=== PATIENT | male | born 1995 | race Caucasian/White ===

== ENCOUNTER → 2017-10-30 | Outpatient (REF) | payer MEDICAID | LOC: M SFHCLERA 18:49 | DX: J02.9 Acute pharyngitis, unspecified (principal) ==

== ENCOUNTER 2018-04-11 22:18 | Emergency (ER) | payer MEDICAID, OTHER, SELFPAY ==
[2018-04-12] MEDS: NS 1,000 ML IV (01:45)
[2018-04-12] MEDS: KETOROLAC 30 MG/ML VIAL (J1885) IV (02:02)
[2018-04-12 02:03] LABS: BASO % 0.4 % (0.0-1.0); EOS # 0.1 10^3/uL (0.0-0.50); EOS % 1.7 % (0.0-3.0); HEMATOCRIT 45.8 % (42.0-52.0); HEMOGLOBIN 15.1 g/dl (13.5-17.5); IMMATURE GRANULOCYTE % 0.2 % (0-3.0); LYMPH # 2.4 10^3/uL (1.5-6.5); LYMPH % 28.8 % (24.0-44.0); MEAN CORPUSCULAR HEMOGLOBIN 28.7 pg (27.0-33.0); MEAN CORPUSCULAR VOLUME 87.1 fl (80.0-96.0); MONO # 0.7 10^3/uL (0.0-0.8); MONO % 8.1 % (0.0-5.0); NEUTROPHILS % 60.8 % (36.0-66.0); PLATELET COUNT, AUTOMATED 243 10^3/uL (150-450); RED BLOOD COUNT 5.26 10^6/uL (4.30-6.10); RED CELL DISTRIBUTION WIDTH 13.1 % (11.5-14.5); WHITE BLOOD COUNT 8.2 10^3/uL (4.0-10.0)
[2018-04-12] MEDS: ONDANSETRON 4MG/2ML VIAL (J2405) IV (02:03)
[2018-04-12 02:26] LABS: PROTHROMBIN TIME 13.3 SECONDS (12.1-14.4)
[2018-04-12 02:27] LABS: PARTIAL THROMBOPLASTIN TIME 30.2 SECONDS (25.4-37.6)
[2018-04-12 02:40] LABS: ALBUMIN/GLOBULIN RATIO 1.05 (1.00-1.93); ALKALINE PHOSPHATASE 58 U/L (45-117); ALT/SGPT 40 U/L (12-78); ANION GAP 7 MEQ/L (8-16); AST/SGOT 24 U/L (7-37); BILIRUBIN,DIRECT < 0.1 MG/DL (0.0-0.2); BILIRUBIN,TOTAL 0.3 MG/DL (0.2-1.0); BLOOD UREA NITROGEN 11 MG/DL (7-18); CALCIUM LEVEL 8.6 MG/DL (8.5-10.1); CARBON DIOXIDE LEVEL 28 MEQ/L (21-32); CHLORIDE LEVEL 106 MEQ/L (98-107); CREATININE FOR GFR 0.91 MG/DL (0.70-1.30); GLOMERULAR FILTRATION RATE > 60.0 (>60); GLUCOSE, FASTING 86 MG/DL (70-100); LIPASE 176 U/L (73-393); POTASSIUM SERUM 3.6 MEQ/L (3.5-5.1); SODIUM LEVEL 141 MEQ/L (136-145); TOTAL PROTEIN 7.8 GM/DL (6.4-8.2)
[2018-04-12] MEDS ORDERED: ISOVUE-370 76% 100ML VIAL (Q9967) As Ordered (03:12)
== END 2018-04-12 05:29 | disposition home or self-care (01) ==
LOC: M ED 22:18
DX: R10.9 Unspecified abdominal pain (principal); R11.0 Nausea; K58.9 Irritable bowel syndrome, unspecified; K57.30 Diverticulosis of large intestine without perforation or abscess without bleeding; Z79.899 Other long term (current) drug therapy
CPT/HCPCS: J2405

== ENCOUNTER → 2018-06-27 | Outpatient (REF) | payer OTHER | LOC: M SFHCPLAZ 14:49 | DX: R53.83 Other fatigue (principal) ==

== ENCOUNTER → 2018-07-01 | Outpatient (REF) | payer OTHER ==
[2018-07-01 19:17] LABS: BASO % 0.6 % (0.0-1.0); EOS # 0.1 10^3/uL (0.0-0.50); EOS % 1.9 % (0.0-3.0); HEMATOCRIT 46.4 % (42.0-52.0); HEMOGLOBIN 15.5 g/dl (13.5-17.5); IMMATURE GRANULOCYTE % 0.3 % (0-3.0); LYMPH # 1.7 10^3/uL (1.5-6.5); LYMPH % 26.8 % (24.0-44.0); MEAN CORPUSCULAR HEMOGLOBIN 28.9 pg (27.0-33.0); MEAN CORPUSCULAR HGB CONC 33.4 g/dl (32.0-36.5); MEAN CORPUSCULAR VOLUME 86.4 fl (80.0-96.0); MONO # 0.7 10^3/uL (0.0-0.8); MONO % 11.1 % (0.0-5.0); NEUTROPHILS # 3.8 10^3/uL (1.8-7.7); NEUTROPHILS % 59.3 % (36.0-66.0); PLATELET COUNT, AUTOMATED 257 10^3/uL (150-450); RED BLOOD COUNT 5.37 10^6/uL (4.30-6.10); RED CELL DISTRIBUTION WIDTH 13.1 % (11.5-14.5); WHITE BLOOD COUNT 6.4 10^3/uL (4.0-10.0)
[2018-07-01 19:54] LABS: ALBUMIN 4.3 GM/DL (3.2-5.2); ALBUMIN/GLOBULIN RATIO 1.16 (1.00-1.93); ALKALINE PHOSPHATASE 56 U/L (45-117); ALT/SGPT 40 U/L (12-78); ANION GAP 10 MEQ/L (8-16); AST/SGOT 20 U/L (7-37); BILIRUBIN,TOTAL 0.4 MG/DL (0.2-1.0); BLOOD UREA NITROGEN 13 MG/DL (7-18); CALCIUM LEVEL 9.2 MG/DL (8.5-10.1); CARBON DIOXIDE LEVEL 28 MEQ/L (21-32); CHLORIDE LEVEL 104 MEQ/L (98-107); CPK CREATINE PHOSPHOKINASE 98 U/L (39-308); CREATININE FOR GFR 0.88 MG/DL (0.70-1.30); FREE T4 0.77 NG/DL (0.76-1.46); GLOMERULAR FILTRATION RATE > 60.0 (>60); GLUCOSE, FASTING 77 MG/DL (70-100); POTASSIUM SERUM 4.1 MEQ/L (3.5-5.1); SODIUM LEVEL 142 MEQ/L (136-145)
[2018-07-02 08:25] LABS: CONTROL LINE MONO RF C INT CTR LINE PRESENT; MONO REFLEX EBV COMP NEGATIVE (NEGATIVE)
[2018-07-05 00:07] LABS: EBV VIRAL CAPSID AG IgM <36.0 U/mL (0.0-35.9)
== END ==
LOC: M SFHCPLAZ 15:19
DX: R53.83 Other fatigue (principal)

== ENCOUNTER 2018-07-04 10:04 | Day surgery (SDC) | payer OTHER ==
[2018-07-04] MEDS: NS 1,000 ML IV (06:00)
[~2018-07-04 10:04] MED LIST: LIDOCAINE 2% INJ 100 MG/5 ML SDV (FOR ANES.) As Ordered; PROPOFOL 200 MG/20 ML VIAL As Ordered
[2018-07-04] MEDS ORDERED: PROPOFOL 200 MG/20 ML VIAL As Ordered (11:54)
== END 2018-07-04 13:00 | disposition home or self-care (01) ==
LOC: M OPP 10:04
DX: K64.8 Other hemorrhoids (principal); K52.9 Noninfective gastroenteritis and colitis, unspecified; K92.1 Melena; K63.5 Polyp of colon; K22.8 Other specified diseases of esophagus; K21.0 Gastro-esophageal reflux disease with esophagitis; K29.70 Gastritis, unspecified, without bleeding; F32.9 Major depressive disorder, single episode, unspecified; F41.9 Anxiety disorder, unspecified; G43.909 Migraine, unspecified, not intractable, without status migrainosus; Z80.0 Family history of malignant neoplasm of digestive organs
CPT/HCPCS: 45380

== ENCOUNTER → 2018-09-20 | Outpatient (REF) | payer OTHER ==
[~2018-09-20] MED LIST changes: +BUSP5TA PO; +FLON1SPR NARES; -LIDOCAINE 2% INJ 100 MG/5 ML SDV (FOR ANES.) As Ordered; +MECL-68 PO; +MULTCAP PO; +OMEP20CA3 PO; +PANT20TA2 PO; +PEPC1TAB5 PO; -PROPOFOL 200 MG/20 ML VIAL As Ordered; +VITA200016 PO; +ZOFR4TAB14 PO; +ZYRTTAB8 PO
[2018-09-20 17:58] LABS: APPEARANCE, URINE CLEAR (CLEAR); BACTERIA, URINE AUTO NEGATIVE (NEGATIVE); BILIRUBIN, URINE AUTO NEGATIVE (NEGATIVE); BLOOD, URINE BLOOD NEGATIVE (NEGATIVE); CALCIUM OXALATE CRYSTALS SMALL; COLOR, URINE YELLOW (YELLOW); GLUCOSE, URINE (UA) AUTO NEGATIVE (NEGATIVE); KETONE, URINE AUTO NEGATIVE (NEGATIVE); LEUKOCYTE ESTERASE, URINE AUTO NEGATIVE (NEGATIVE); MUCUS, URINE MODERATE (NEGATIVE); NITRITE, URINE AUTO NEGATIVE (NEGATIVE); PROTEIN, URINE AUTO NEGATIVE (NEGATIVE); RBC, URINE AUTO 1 /HPF (0-3); SPECIFIC GRAVITY URINE AUTO 1.029 (1.002-1.035); SQUAMOUS EPITHELIAL CELL UR AU 0 /HPF (0-6); UROBILINOGEN, URINE AUTO 0.2 mg/dL (0.0-2.0); WBC, URINE AUTO 0 /HPF (0-3)
[2018-09-20 19:53] LABS: CHLAMYDIA DNA AMPLIFICATION NEGATIVE (NEGATIVE); GC DNA AMPLIFICATION NEGATIVE (NEGATIVE)
== END ==
LOC: M SFHCPLAZ 17:20
PROVIDERS: ATTEND Obstetrics & Gynecology
DX: E55.9 Vitamin D deficiency, unspecified (principal); R30.0 Dysuria

== ENCOUNTER 2018-09-26 02:52 | Emergency (ER) | payer OTHER ==
[~2018-09-26] VITALS: Ht 180.3 cm; Wt 93.2 kg
[~2018-09-26 02:52] MED LIST changes: -FLON1SPR NARES; -MECL-68 PO; -PANT20TA2 PO; -PEPC1TAB5 PO; -VITA200016 PO
[2018-09-26] MEDS ORDERED: FLON1SPR NARES (02:56)
[2018-09-26] MEDS ORDERED: PANT20TA2 PO (02:56)
[2018-09-26] MEDS ORDERED: VITA200016 PO (02:56)
[2018-09-26] MEDS ORDERED: NS 1,000 ML IV ONE (03:30)
[2018-09-26 03:47] LABS: BASO % 0.4 % (0.0-1.0); EOS # 0.1 10^3/uL (0.0-0.50); EOS % 0.9 % (0.0-3.0); HEMATOCRIT 45.3 % (42.0-52.0); HEMOGLOBIN 15.1 g/dl (13.5-17.5); LYMPH # 2.1 10^3/uL (1.5-6.5); LYMPH % 19.8 % (24.0-44.0); MEAN CORPUSCULAR HEMOGLOBIN 28.9 pg (27.0-33.0); MEAN CORPUSCULAR HGB CONC 33.3 g/dl (32.0-36.5); MEAN CORPUSCULAR VOLUME 86.8 fl (80.0-96.0); MONO # 0.9 10^3/uL (0.0-0.8); MONO % 8.3 % (0.0-5.0); NEUTROPHILS # 7.5 10^3/uL (1.8-7.7); NEUTROPHILS % 70.2 % (36.0-66.0); PLATELET COUNT, AUTOMATED 251 10^3/uL (150-450); RED BLOOD COUNT 5.22 10^6/uL (4.30-6.10); WHITE BLOOD COUNT 10.6 10^3/uL (4.0-10.0)
[2018-09-26] MEDS ORDERED: GI COCKTAIL 50ML BTL(HYOSCYAMINE/MAALOX/LIDOCAINE VISCOUS)(1:3:1) PO ONE (04:00)
[2018-09-26 04:19] LABS: ALBUMIN 4.2 GM/DL (3.2-5.2); ALT/SGPT 31 U/L (12-78); BILIRUBIN,DIRECT < 0.1 MG/DL (0.0-0.2); BILIRUBIN,TOTAL 0.3 MG/DL (0.2-1.0); BLOOD UREA NITROGEN 9 MG/DL (7-18); CALCIUM LEVEL 8.6 MG/DL (8.5-10.1); CARBON DIOXIDE LEVEL 26 MEQ/L (21-32); CHLORIDE LEVEL 105 MEQ/L (98-107); CK-MB VALUE MASS < 1.0 NG/ML (<3.6); CPK CREATINE PHOSPHOKINASE 127 U/L (39-308); CREATININE FOR GFR 0.87 MG/DL (0.70-1.30); GLOMERULAR FILTRATION RATE > 60.0 (>60); GLUCOSE, FASTING 90 MG/DL (70-100); LIPASE 149 U/L (73-393); MB/CK RELATIVE INDEX 0.79 (< OR =4); POTASSIUM SERUM 3.7 MEQ/L (3.5-5.1); SODIUM LEVEL 140 MEQ/L (136-145); TOTAL PROTEIN 7.8 GM/DL (6.4-8.2); TROPONIN I < 0.02 NG/ML (< 0.10)
[2018-09-26] MEDS ORDERED: MECLIZINE 25 MG TABLET PO ONE (05:00)
[2018-09-26] MEDS ORDERED: FAMOTIDINE 20 MG TAB PO ONE (05:00)
[2018-09-26] MEDS ORDERED: PANTOPRAZOLE 40MG INJ (PROTONIX) (C9113) IV ONE (05:00)
[2018-09-26] MEDS ORDERED: PEPC1TAB5 PO (05:02)
[2018-09-26] MEDS ORDERED: MECL-68 PO (05:02)
[2018-09-26 05:04] VITALS: BP 122/66
== END 2018-09-26 05:09 | disposition home or self-care (01) ==
LOC: M ED 02:52
DX: K21.9 Gastro-esophageal reflux disease without esophagitis (principal)
CPT/HCPCS: 80048; 80076; 82550; 82553; 83690; 85025; 93041; 96361; 96374; 99284; C9113

== ENCOUNTER → 2019-01-31 | Outpatient (CLI) | payer OTHER ==
[~2019-01-31] MED LIST changes: +FLON1SPR NARES; +MECL-68 PO; +PANT20TA2 PO; +PEPC1TAB5 PO; +VITA200016 PO
== END ==
LOC: M LAB 15:47
PROVIDERS: ATTEND Internal Medicine Gastroenterology
DX: B96.81 Helicobacter pylori [H. pylori] as the cause of diseases classified elsewhere (principal)

== ENCOUNTER → 2019-02-05 | Outpatient (REF) | payer OTHER | LOC: M LAB REF 02-04 15:59 | PROVIDERS: ATTEND Internal Medicine Gastroenterology | DX: B96.81 Helicobacter pylori [H. pylori] as the cause of diseases classified elsewhere (principal) ==

== ENCOUNTER 2019-05-05 12:03 | Day surgery (SDC) | payer OTHER ==
[~2019-05-05] VITALS: Ht 175.3 cm; Wt 129.7 kg
[~2019-05-05 12:03] MED LIST changes: -OMEP20CA3 PO; +OMEP20CA4 PO; +OMEP40CA2 PO; +RANI15TA PO
[2019-05-05] MEDS ORDERED: NS 1,000 ML IV ONE (13:15)
[2019-05-05] MEDS ORDERED: LIDOCAINE 2% INJ 100 MG/5 ML SDV (FOR ANES.) As Ordered ONE (13:30)
[2019-05-05] MEDS ORDERED: PROPOFOL 200 MG/20 ML VIAL As Ordered ONE ×2 (13:30→13:57)
--- NOTE | 2019-05-05 14:13 | ROOR ---
Patient Name: Brayan Arguello Procedure Date: 05/05/2019 1:45 PM Date of : 1995 Age: 23 Room: [facility] Gender: Male Note Status: Finalized Procedure: Upper GI endoscopy Indications: Heartburn, Suspected gastro-esophageal reflux disease Providers: Bharath Galvan MD Referring MD: THIERRY MATA [facility] THIERRY Denise Requesting Provider: Medicines: Monitored Anesthesia Care Complications: No immediate complications. Procedure: Pre-Anesthesia Assessment: - Prior to the procedure, a History and Physical was performed, and patient medications and allergies were reviewed. The patient is competent. The risks and benefits of the procedure and the sedation options and risks were discussed with the patient. All questions were answered and informed consent was obtained. Patient identification and proposed procedure were verified by the physician, the nurse and the anesthesiologist in the procedure room. Mental Status Examination: alert and oriented. Airway Examination: normal oropharyngeal airway and neck mobility. Respiratory Examination: clear to auscultation. CV Examination: normal. Prophylactic Antibiotics: The patient does not require prophylactic antibiotics. Prior Anticoagulants: The patient has taken no previous anticoagulant or antiplatelet agents. ASA Grade Assessment: II - A patient with mild systemic disease. After reviewing the risks and benefits, the patient was deemed in satisfactory condition to undergo the procedure. The anesthesia plan was to use monitored anesthesia care (MAC). Immediately prior to administration of medications, the patient was re-assessed for adequacy to receive sedatives. The heart rate, respiratory rate, oxygen saturations, blood pressure, adequacy of pulmonary ventilation, and response to care were monitored throughout the procedure. The physical status of the patient was re-assessed after the procedure. The Endoscope was introduced through the mouth, and advanced to the second part of duodenum. The upper GI endoscopy was accomplished without difficulty. The patient tolerated the procedure well. Findings: The Z-line was regular and was found 40 cm from the incisors. The GOFF capsule with delivery system was introduced through the mouth and advanced into the esophagus, such that the GOFF pH capsule was positioned 34 cm from the incisors, which was 6 cm proximal to the GE junction. Suction was applied to the well of the GOFF pH capsule to suck in the adjacent mucosa of the esophagus using the external vacuum pump set at a minimum vacuum pressure of 550 mmHg for 30 seconds. The GOFF pH capsule was then deployed by depressing the plunger on top of the handle to advance the locking pin into the mucosa, thereby attaching the capsule to the esophagus. The plunger was then rotated a quarter turn clockwise to release the capsule from the delivery system. The delivery system was then withdrawn. Endoscopy was utilized for probe placement and diagnostic evaluation. The scope was reinserted to evaluate placement of the GOFF capsule. Visualization showed the GOFF capsule to be in an appropriate position. Scattered minimal inflammation characterized by erythema and granularity was found in the gastric antrum. Biopsies were taken with a cold forceps for Helicobacter pylori testing. Verification of patient identification for the specimen was done by the physician and nurse using the patient's name, date and medical record number. Estimated blood loss was minimal. The duodenal bulb and second portion of the duodenum were normal. Impression: - Z-line regular, 40 cm from the incisors. - Gastritis. Biopsied. - Normal duodenal bulb and second portion of the duodenum. - The GOFF pH capsule was positioned 34 cm from the incisors, which was 6 cm proximal to the GE junction. Recommendation: - Patient has a contact number available for emergencies. The signs and symptoms of potential delayed complications were discussed with the patient. Return to normal activities tomorrow. Written discharge instructions were provided to the patient. - Resume previous diet. - Continue present medications. - Await pathology results. - Follow an antireflux regimen. - Telephone GI clinic for study results in 3 weeks. - Return to primary care physician. Bharath Galvan MD Bharath Galvan MD 05/05/2019 2:13:18 PM Electronically signed by Bharath Galvan MD Number of Addenda: 0 Note Initiated On: 05/05/2019 1:45 PM Estimated Blood Loss: Estimated blood loss was minimal.
[2019-05-05 14:30] VITALS: BP 115/69
== END 2019-05-05 14:44 | disposition home or self-care (01) ==
LOC: M OPP 12:03
PROVIDERS: ATTEND Internal Medicine Gastroenterology
DX: K29.50 Unspecified chronic gastritis without bleeding (principal)

== ENCOUNTER → 2019-05-08 | Outpatient (REF) | payer OTHER ==
[2019-05-09 10:45] LABS: HIV 1&2 SCREEN CENTAUR NEGATIVE (NEGATIVE)
== END ==
LOC: M SFHCPLAZ 15:17
PROVIDERS: ATTEND Family Medicine
DX: E55.9 Vitamin D deficiency, unspecified (principal); Z11.9 Encounter for screening for infectious and parasitic diseases, unspecified

== ENCOUNTER → 2019-06-27 | Outpatient (REF) | payer OTHER ==
[2019-06-27 14:49] LABS: BASO % 0.7 % (0.0-1.0); EOS # 0.1 10^3/uL (0.0-0.5); EOS % 2.2 % (0.0-3.0); HEMATOCRIT 42.5 % (42.0-52.0); LYMPH # 1.9 10^3/uL (1.5-5.0); LYMPH % 30.7 % (24.0-44.0); MEAN CORPUSCULAR HEMOGLOBIN 28.4 pg (27.0-33.0); MEAN CORPUSCULAR HGB CONC 32.9 g/dl (32.0-36.5); MEAN CORPUSCULAR VOLUME 86.2 fl (80.0-96.0); MONO # 0.6 10^3/uL (0.0-0.8); MONO % 10.4 % (0.0-5.0); NEUTROPHILS # 3.3 10^3/uL (1.5-8.5); PLATELET COUNT, AUTOMATED 239 10^3/uL (150-450); RED BLOOD COUNT 4.93 10^6/uL (4.30-6.10)
[2019-06-27 15:02] LABS: ALBUMIN 3.9 GM/DL (3.2-5.2); ALT/SGPT 33 U/L (12-78); BILIRUBIN,TOTAL 0.5 MG/DL (0.2-1.0); BLOOD UREA NITROGEN 12 MG/DL (7-18); CALCIUM LEVEL 8.6 MG/DL (8.5-10.1); CARBON DIOXIDE LEVEL 27 MEQ/L (21-32); CHLORIDE LEVEL 104 MEQ/L (98-107); CREATININE FOR GFR 0.78 MG/DL (0.70-1.30); FERRITIN 107 NG/ML (26-388); GLOMERULAR FILTRATION RATE > 60.0 (>60); GLUCOSE, FASTING 86 MG/DL (70-100); POTASSIUM SERUM 3.9 MEQ/L (3.5-5.1); SODIUM LEVEL 140 MEQ/L (136-145); TOTAL PROTEIN 7.6 GM/DL (6.4-8.2)
== END ==
LOC: M LABNEURO 10:07
PROVIDERS: ATTEND Psychiatry & Neurology Neurology
DX: G47.00 Insomnia, unspecified (principal); G25.81 Restless legs syndrome

== ENCOUNTER 2019-08-01 14:30 | Outpatient (RCR) | payer OTHER ==
[~2019-08-01 14:30] MED LIST changes: -OMEP40CA2 PO; +OMEP40CA97 PO
== END 2019-08-03 ==
LOC: M PT 14:30
PROVIDERS: ATTEND Obstetrics & Gynecology
DX: H81.11 Benign paroxysmal vertigo, right ear (principal)

== ENCOUNTER → 2019-10-23 | Outpatient (CLI) | payer OTHER ==
[~2019-10-23] MED LIST changes: -MECL-68 PO; +MECL1TAB31 PO; +OMEP1CAP73 PO; -OMEP20CA4 PO
== END ==
LOC: M PLALAB 15:33
PROVIDERS: ATTEND Obstetrics & Gynecology
DX: E55.9 Vitamin D deficiency, unspecified (principal)

== ENCOUNTER → 2021-01-08 | Outpatient (CLI) | payer OTHER ==
[~2021-01-08] MED LIST changes: -PANT20TA2 PO; +PANT20TA6 PO
== END ==
LOC: M LABSMTC 12:38
PROVIDERS: ATTEND Anesthesiology
DX: Z01.812 Encounter for preprocedural laboratory examination (principal)

== ENCOUNTER 2021-01-13 09:46 | Day surgery (SDC) | payer OTHER ==
[~2021-01-13] VITALS: Ht 180.3 cm; Wt 90.3 kg
[~2021-01-13 09:46] MED LIST changes: +NS 1,000 ML IV ONE
[2021-01-13] MEDS ORDERED: LIDOCAINE 2% 100MG/5ML SDV (FOR ANES.) As Ordered ONE (09:51)
[2021-01-13] MEDS ORDERED: propofoL 200 MG/20 ML VIAL As Ordered ONE (09:51)
[2021-01-13] MEDS ORDERED: fentaNYL 100 MCG/2 ML INJECTION (J3010) As Ordered ONE (09:52)
--- NOTE | 2021-01-13 11:24 | ROOR ---
Patient Name: Brayan Arguello Procedure Date: 01/13/2021 11:07 AM Date of : 1995 Age: 25 Room: [facility] Gender: Male Note Status: Finalized Procedure: Upper Endoscopy + Biopsies Indications: Heartburn, Exclusion of Hernandez's esophagus Providers: Yoseph Gaviria MD Referring MD: Gladys Zaidi Do Requesting Provider: Medicines: Monitored Anesthesia Care Complications: No immediate complications. Procedure: Pre-Anesthesia Assessment: - The heart rate, respiratory rate, oxygen saturations, blood pressure, adequacy of pulmonary ventilation, and response to care were monitored throughout the procedure. The Endoscope was introduced through the mouth, and advanced to the second part of duodenum. The upper GI endoscopy was accomplished without difficulty. The patient tolerated the procedure well. Findings: The Z-line was regular and was found 40 cm from the incisors. Multiple biopsies were obtained with cold forceps for evaluation to rule out Hernandez's Esophagus randomly at the gastroesophageal junction. Mucosal changes were found in the mid esophagus. Biopsies were taken with a cold forceps for histology. No other significant abnormalities were identified in a careful examination of the stomach. Biopsies were taken with a cold forceps in the gastric antrum for Helicobacter pylori testing. The exam of the duodenum was otherwise normal. Impression: - Z-line regular, 40 cm from the incisors. - Esophageal mucosal changes suggestive of eosinophilic esophagitis. Biopsied. - Multiple biopsies were obtained at the gastroesophageal junction. - Biopsies were taken with a cold forceps for Helicobacter pylori testing. - The examination was otherwise normal. Recommendation: - Patient has a contact number available for emergencies. The signs and symptoms of potential delayed complications were discussed with the patient. Return to normal activities tomorrow. Written discharge instructions were provided to the patient. - High fiber diet. - Discharge patient to home. - Follow an antireflux regimen. - Continue present medications. - Await pathology results. - Telephone GI clinic for pathology results in 1 week. - Return to referring physician. - The findings and recommendations were discussed with the patient. Procedure Code(s): --- Professional --- 33052, Esophagogastroduodenoscopy, flexible, transoral; with biopsy, single or multiple Diagnosis Code(s): --- Professional --- K22.8, Other specified diseases of esophagus R12, Heartburn CPT copyright 2019 [employer] [place] [employer]. All rights reserved. The codes documented in this report are preliminary and upon computer language coder review may be revised to meet current compliance requirements. Yoseph Gaviria MD Yoseph Gaviria MD 01/13/2021 11:23:36 AM Electronically signed by Yoseph Gaviria MD Number of Addenda: 0 Note Initiated On: 01/13/2021 11:07 AM Estimated Blood Loss: Estimated blood loss: none.
[2021-01-13 11:54] VITALS: BP 118/77
== END 2021-01-13 11:57 | disposition home or self-care (01) ==
LOC: M OPP 09:46
PROVIDERS: ATTEND Internal Medicine Gastroenterology
DX: R12 Heartburn (principal); D13.0 Benign neoplasm of esophagus; D13.1 Benign neoplasm of stomach; K22.8 Other specified diseases of esophagus; K58.9 Irritable bowel syndrome, unspecified; L30.9 Dermatitis, unspecified; F41.9 Anxiety disorder, unspecified; F32.9 Major depressive disorder, single episode, unspecified; G43.909 Migraine, unspecified, not intractable, without status migrainosus; Z79.899 Other long term (current) drug therapy
CPT/HCPCS: 43239; 88305; J3010

== ENCOUNTER 2021-05-30 16:43 | Emergency (ER) | payer OTHER ==
[~2021-05-30] VITALS: Ht 175.3 cm; Wt 85.1 kg
[2021-05-30 22:25] LABS: BASO % 0.3 % (0.0-1.0); EOS # 0.1 10^3/uL (0.0-0.5); EOS % 1.2 % (0.0-3.0); HEMATOCRIT 44.3 % (42.0-52.0); HEMOGLOBIN 14.6 g/dl (13.5-17.5); LYMPH # 1.7 10^3/uL (1.5-5.0); LYMPH % 25.8 % (24.0-44.0); MEAN CORPUSCULAR HEMOGLOBIN 28.4 pg (27.0-33.0); MEAN CORPUSCULAR VOLUME 86.2 fl (80.0-96.0); MONO # 0.8 10^3/uL (0.0-0.8); MONO % 11.8 % (2.0-8.0); NEUTROPHILS # 3.9 10^3/uL (1.5-8.5); NEUTROPHILS % 60.7 % (36.0-66.0); PLATELET COUNT, AUTOMATED 239 10^3/uL (150-450); RED BLOOD COUNT 5.14 10^6/uL (4.30-6.10); WHITE BLOOD COUNT 6.4 10^3/uL (4.0-10.0)
[2021-05-30 22:59] LABS: ALT/SGPT 22 U/L (12-78); BILIRUBIN,DIRECT 0.1 MG/DL (0.0-0.2); BILIRUBIN,TOTAL 0.3 MG/DL (0.2-1.0); BLOOD UREA NITROGEN 9 MG/DL (7-18); CALCIUM LEVEL 9.1 MG/DL (8.5-10.1); CARBON DIOXIDE LEVEL 29 MEQ/L (21-32); CHLORIDE LEVEL 105 MEQ/L (98-107); CK-MB VALUE MASS < 1.0 NG/ML (<3.6); CPK CREATINE PHOSPHOKINASE 75 U/L (39-308); CREATININE FOR GFR 0.86 MG/DL (0.70-1.30); GLOMERULAR FILTRATION RATE > 60.0 (>60); GLUCOSE, FASTING 104 MG/DL (70-100); LIPASE 223 U/L (73-393); MB/CK RELATIVE INDEX 1.33 (< OR =4); SODIUM LEVEL 140 MEQ/L (136-145); TOTAL PROTEIN 7.9 GM/DL (6.4-8.2); TROPONIN I < 0.02 NG/ML (< 0.10)
[2021-05-30] MEDS ORDERED: GI COCKTAIL 50ML BTL(HYOSCYAMINE/MAALOX/LIDOCAINE VISCOUS)(1:3:1) PO ONE (23:05)
[2021-05-31 01:19] VITALS: BP 116/73
== END 2021-05-31 01:20 | disposition home or self-care (01) ==
LOC: M ED 16:43
DX: K21.9 Gastro-esophageal reflux disease without esophagitis (principal); F41.9 Anxiety disorder, unspecified; F33.9 Major depressive disorder, recurrent, unspecified; K58.9 Irritable bowel syndrome, unspecified; Z79.899 Other long term (current) drug therapy

== ENCOUNTER → 2021-05-30 | Outpatient (CLI) | payer OTHER ==
[~2021-05-30] MED LIST changes: -NS 1,000 ML IV ONE; +OMEP40CA4 PO; -OMEP40CA97 PO
== END ==
LOC: M LABSMTC 11:31
PROVIDERS: ATTEND Pediatrics
DX: Z20.822 Contact with and (suspected) exposure to COVID-19 (principal)
CPT/HCPCS: C9803; U0003

== ENCOUNTER 2021-07-16 13:04 | Emergency (ER) | payer OTHER ==
[~2021-07-16] VITALS: Ht 177.8 cm; Wt 85.6 kg
--- OUTSIDE RECORDS SUMMARY | 2021-07-16 13:11 | CCD | Continuity of Care Document ---
Author Author Brayan CEE [place] Organization Unknown Address [address] [place] [address] [place] [address] Phone [phone] Care Team Providers Care Senior Professional Services Consultant Name Role Phone [facility] AUTM [phone] Problems Description No Information Available Social History Type Date Description Comments Sex Unknown Tobacco Use Start: Unknown Never Smoked Cigarettes Vapes ETOH Use Denies alcohol use Tobacco Use Start: Unknown Patient has never smoked Allergies, Adverse Reactions, Alerts Description No Known Drug Allergies Medications Active Medications SIG Qnty Indications Ordering Provide r Date Proair HFA 108(90Base) mcg/Act Aer osol inhale 2 puffs every 4-6 hours as needed for cough or wheeze 8.500gm R05 Joseph Abraham JR., M.D. 01/11/[address] 1 by mouth every day Unknown Immunizations Description No Information Available Vital Signs Date Vital Result Comment 01/11/2019 5:08pm BP Systolic 114 mmHg BP Diastolic 78 mmHg Heart Rate 82 /min Respiratory Rate 18 /min O2 % BldC Oximetry 97 % Body Temperature 97.8 F Weight 205.00 lb Height 71 inches 5'11" BMI (Body Mass Index) 28.6 kg/m2 Pain Level 5 11/05/2016 1:30pm BP Systolic 137 mmHg BP Diastolic 83 mmHg Heart Rate 88 /min O2 % BldC Oximetry 96 % Body Temperature 99.3 F Weight 200.00 lb Height 70 inches 5'10" BMI (Body Mass Index) 28.7 kg/m2 Pain Level 3 Results Description No Information Available Procedures Description No Information Available Medical Devices Description No Information Available Encounters Description No Information Available Assessments Description No Information Available Plan of Treatment No Information Available Functional Status Description No Information Available Mental Status Description No Information Available Referrals Description No Information Available
--- OUTSIDE RECORDS SUMMARY | 2021-07-16 13:11 | CCD ---
Author Author [facility] Organization [facility] Address Unknown Phone Unavailable Care Team Providers Care Cloth Classer Name Role Phone Yaneth Nielsen Unavailable PROBLEMS Type Condition ICD9-CM Code LSU00-LZ Code Onset Dates Condition S tatus W/U Status Risk SNOMED Code Notes Problem Anxiety F41.9 Active confirmed 38782810 Problem Other tobacco product nicotine dependence, uncomplicated F17.290 Active confirmed 42164867 Problem Obstructive sleep apnea G47.33 Active confirmed 34220669 Problem Irritable bowel syndrome with both constipation and diarrh ea K58.2 Active confirmed 43466703 Problem Diverticulosis large intestine w/o perforation o r abscess w/bleeding K57.31 Active confirmed 4186361 Problem Gastroesophageal reflux disease without esophagitis K21.9 Active confirmed 515089584 Problem Vitamin D deficiency E55.9 Active confirmed 96257999 ALLERGIES Allergen (clinical drug ingredient) Drug/Non Drug Allergy do cumented on EMR Reaction Allergy Type Onset Date Status sertraline Sertraline HCl([facility] Code:[address]-73) Panic Attack Drug A llergy Active venlafaxine Venlafaxine HCl([place] Code:[address]-28) Panic Attack Drug Allergy Active ENCOUNTERS from 1995 to 2021-06-03 Encounter Location Date Provider Diagnosis [address] [phone] [place] [address] May, Yaneth Rayi IMMUNIZATIONS Vaccine Route Administration Date Status Rocephin 250mg Ceftriaxone IM Intramuscular January 25, 2018 Admi nistered Gardasil IM Intramuscular Jun 21, 2015 Administered SOCIAL HISTORY Tobacco Use: Social History Observation Description Date Details (start date - stop date) Never Smoker Sex Assigned At : Social History Observation Description Sex Assigned At Unknown Education: Question Answer Notes Level of Education: High School Audit Question Answer Notes Total Score: 0 Interpretation: Alcohol Education Language: Question Answer Notes Languages spoken: Albanian Quaker: Question Answer Notes Quaker 08 [employer] No mormonism beliefs that would impact health care. Drug and Alcohol Question Answer Notes Total Score: 0 Interpretation: No problems reported Tobacco Use: Question Answer Notes Are you a: never smoker never smoker REASON FOR REFERRAL No Information VITAL SIGNS No information MEDICATIONS Medication SIG (Take, Route, Frequency, Duration) Notes Start Da te End Date Status Ranitidine HCl 300 MG 1 tablet Orally Once a day for 30 day(s) Oct, Active hydrOXYzine HCl 25 MG 1 tablet as needed Orally every 8 hrs for 30 da y(s) Not-Taking Carafate 1 GM/10ML 10 ml on an empty stomach Orally Twice a day for 30 day(s) May, Active Vitamin D 50 MCG (1999 [place]) 1 tablet Orally Once a day for 30 day(s) Active Omeprazole 40 MG 1 capsule Orally Once a day for 30 day(s) Mar, Active PROCEDURES No Information RESULTS No Results REASON FOR VISIT SOB MEDICAL (GENERAL) HISTORY Type Description Date Medical History Eczema Medical History History of chronic headaches (have gone away) Medical History Insomnia Medical History Anxiety Medical History H. pylori w/ reflux Surgical History Rt Eye surgery, 1999 Goals Section No Information Health Concerns No Information MEDICAL EQUIPMENT No Information MENTAL STATUS No Information FUNCTIONAL STATUS No Information ASSESSMENTS No Information PLAN OF TREATMENT Medication Medication Name Sig Start Date Stop Date Carafate 1 GM/10ML 10 ml on an empty stomach Orally Twice a day for 30 day(s) May, Ranitidine HCl 300 MG 1 tablet Orally Once a day for 30 day(s) 2 0 Oct, 2019 Omeprazole 40 MG 1 capsule Orally Once a day for 30 day(s) 2018 Insurance Providers Payer Name Payer Address Payer Phone Insured Name Patient Relati onship to Insured Coverage Start Date Coverage End Date [facility] [address] [facility] [id number] SKIP MICHAELS self
--- OUTSIDE RECORDS SUMMARY | 2021-07-16 13:11 | CCD | Continuity of Care Document ---
Author Author Brayan GAVIRIA M.D. Organization Unknown Address [address] [place] [address] Phone [phone] Care Team Providers Care Sales Promoter Name Role Phone Gladys Zaidi DO AUTM [phone] Problems Active Problems Provider Date Gastroesophageal reflux disease Yoseph Gaviria M.D. Ons et: 05/21/2020 Social History Type Date Description Comments Sex Unknown ETOH Use Occasionally Tobacco Use Start: Unknown Patient has never smoked Allergies, Adverse Reactions, Alerts Description No Known Drug Allergies Medications Active Medications SIG Qnty Indications Ordering Provide r Date Gaviscon Extra Strength 160-105mg Chewtabs 1 tab by mouth four times a day before meals,and at bedtime 360u nitbenjy Gaviria M.D. 06/03/[address] take one capsule by mouth twice a day 180caps Yoseph Gaviria M.D. Immunizations Description No Information Available Vital Signs Date Vital Result Comment 06/03/2021 3:13pm Height 70 inches 5'10" Weight 186.00 lb BP Systolic 117 mmHg BP Diastolic 78 mmHg Heart Rate 86 /min BMI (Body Mass Index) 26.7 kg/m2 Weight 84.370 kg Body Temperature 97.5 F 12/31/2020 3:41pm Height 70 inches 5'10" Weight 200.00 lb BP Systolic 124 mmHg BP Diastolic 97 mmHg Heart Rate 78 /min BMI (Body Mass Index) 28.7 kg/m2 Weight 90.720 kg Body Temperature 98.1 F Results Test Acquired Date Facility Test Result H/L Range Note Laboratory test finding 01/13/2021 [facility] [address] [place] [address] Pathology Request For Service (SEE NOTE) 1, 2 1 FINAL DIAGNOSIS A - Stomach, antrum, biopsy: Gastric mucosa with reactive gastropathy. No evidence for H. pylori-like organisms on H&E stain. B - Below Z-line, biopsy: Junctional mucosa with mild chronic inflammation. No evidence for intestinal metaplasia. C - Esophagus, mid, biopsy: Squamous mucosa with no significant pathologic changes. No evidence for eosinophilic esophagitis. 01/14/2021 - 1400 CLINICAL DIAGNOSIS Chronic reflux 01/14/2021 - 721 GROSS DIAGNOSIS A - Received in formalin labeled "biopsy antrum" and consists of two fragments of sorensen tissue 0.4 x 0.3 x 0.2 cm. in aggregate. All in one. B - Received in formalin labeled "below Z line biopsy" and consists of three fragments of sorensen tissue 0.3 x 0.2 x 0.1 cm. in aggregate. All in one. C - Received in formalin labeled "mid esophagus biopsy" and consists of two fragments of sorensen tissue 0.3 x 0.2 x 0.1 cm. in aggregate. All in one. -SV 01/14/2021 - 721 Signed DARWIN BELL MD 01/14/2021 1408 2 01/15/21 (WedJan 15) 07:30 AM YOSEPH GAVIRIA No clinical pathology All normal Procedures Date Code Description Status 06/03/2021 16412 Office/Outpatient Established [facility] 20-29 Min Completed 01/13/2021 79305 Endoscopy Upper GI Biopsy Comple ajnet 12/31/2020 38976 Office/Outpatient Established [facility] 20-29 Min Completed Medical Devices Description No Information Available Encounters Type Date Location Provider Dx Diagnosis Office Visit 06/03/2021 3:00p Main Office Yoseph Gaviria M.D. R 12 Heartburn Office Visit 12/31/2020 3:00p Main Office Yoseph Gaviria M.D. K 21.9 Gastro-esophageal reflux disease without esophagitis Assessments Date Code Description Provider 06/03/2021 R12 Heartburn Yoseph may M.D. 01/13/2021 R12 Heartburn Yoseph may M.D. 01/13/2021 K22.9 Disease of esophagus, unspecifie d Yoseph Gaviria M.D. 12/31/2020 K21.9 Gastroesophageal reflux disease Yoseph Gaviria M.D. Plan of Treatment Future Appointment(s):* 07/31/2021 3:15 pm - Yoseph Gaviria M.D. at Main Office 06/03/2021 - Yoseph Gaviria M.D.* R12 Heartburn* Comments:* 25 yo wm who presents for an egd for a h/o heartburn. Exclude intestinal metaplasia. Last scope was in 2018. No c/o abdominal pain, weight loss, change in bowel habits, or rectal bleeding. No family h/o colon cancer. No h/o chest pain, or sob. Plan:1. Omeprazole 40 mgs po bid.2. Gaviscon qid prn for breakthrough systems.3. Office as set up. Functional Status Description No Information Available Mental Status Description No Information Available Referrals Description No Information Available
--- OUTSIDE RECORDS SUMMARY | 2021-07-16 13:11 | CCD | Continuity of Care Document ---
Author Author Brayan CEE [place] Organization Unknown Address [address] [place] [address] [place] [address] Phone [phone] Care Team Providers Care Auto Suspension And Steering Mechanic Name Role Phone [facility] AUTM [phone] Problems Description No Information Available Social History [...] Available Encounters Description No Information Available Assessments Date Code Description Provider 07/15/2021 Z20.828 Contact with and (reid spected) exposure to other viral communicable diseases YAO Arreola Plan of Treatment No Information Available Functional Status Description No Information Available Mental Status Description No Information Available Referrals Description No Information Available
--- OUTSIDE RECORDS SUMMARY | 2021-07-16 13:12 | CCD ---
Author Author [facility] Organization [facility] Address Unknown Phone Unavailable Care Team Providers Care Chief Business Development Officer Name Role Phone Eileen Gaviria MD Unavailable Unavailable Eileen Gaviria MD Unavailable Unavailable Everette, S Yoseph MD Unavailable Unavailable Everette, S Yoseph MD Unavailable Unavailable Everette, S Yoseph MD Unavailable Unavailable Everette, S Yoseph MD Unavailable Unavailable Everette, S Yoseph MD Unavailable Unavailable Everette, S Yoseph MD Unavailable Unavailable Everette, S Yoseph MD Unavailable Unavailable Everette, S Yoseph MD Unavailable Unavailable Everette, S Yoseph MD Unavailable Unavailable Everette, S Yoseph MD Unavailable Unavailable Everette, S Yoseph MD Unavailable Unavailable Everette, S Yoseph MD Unavailable Unavailable Everette, S Yoseph MD Unavailable Unavailable Everette, S Yoseph MD Unavailable Unavailable Everette, S Yoseph MD Unavailable Unavailable Everette, S Yoseph MD Unavailable Unavailable Everette, S Yoseph MD Unavailable Unavailable Everette, S Yoseph MD Unavailable Unavailable Everette, S Yoseph MD Unavailable Unavailable Everette, S Yoseph MD Unavailable Unavailable Everette, S Yoseph MD Unavailable Unavailable Everette, S Yoseph MD Unavailable Unavailable Everette, S Yoseph MD Unavailable Unavailable Everette, S Yoseph MD Unavailable Unavailable Everette, S Yoseph MD Unavailable Unavailable Everette, S Yoseph MD Unavailable Unavailable Everette, S Yoseph MD Unavailable Unavailable Everette, S Yoseph MD Unavailable Unavailable Everette, S Yoseph MD Unavailable Unavailable Everette, S Yoseph MD Unavailable Unavailable Everette, S Yoseph MD Unavailable Unavailable Everette, S Yoseph MD Unavailable Unavailable Everette, S Yoseph MD Unavailable Unavailable Everette, S Yoseph MD Unavailable Unavailable Everette, S Yoseph MD Unavailable Unavailable Everette, S Yoseph MD Unavailable Unavailable Everette, S Yoseph MD Unavailable Unavailable Everette, S Yoseph MD Unavailable Unavailable Everette, S Yoseph MD Unavailable Unavailable Everette, S Yoseph MD Unavailable Unavailable Everette, S Yoseph MD Unavailable Unavailable Everette, S Yoseph MD Unavailable Unavailable Everette, S Yoseph MD Unavailable Unavailable Everette, S Yoseph MD Unavailable Unavailable Everette, S Yoseph MD Unavailable Unavailable Everette, S Yoseph MD Unavailable Unavailable Everette, S Yoseph MD Unavailable Unavailable Everette, S Yoseph MD Unavailable Unavailable Re-disclosure Warning The records that you are about to access may contain information from federally-assisted alcohol or drug abuse programs. If such information is present, then the following federally mandated warning applies: This information has been disclosed to you from records protected by federal confidentiality rules (42 CFR part 2). The federal rules prohibit you from making any further disclosure of this information unless further disclosure is expressly permitted by the written consent of the person to whom it pertains or as otherwise permitted by 42 CFR part 2. A general authorization for the release of medical or other information is NOT sufficient for this purpose. The Federal rules restrict any use of the information to criminally investigate or prosecute any alcohol or drug abuse patient.The records that you are about to access may contain highly sensitive health information, the redisclosure of which is protected by Article 27-F of the [facility] Public Health law. If you continue you may have access to information: Regarding HIV / AIDS; Provided by facilities licensed or operated by the [facility] Office of Mental Health; or Provided by the [facility] Office for People With Developmental Disabilities. If such information is present, then the following [facility] mandated warning applies: This information has been disclosed to you from confidential records which are protected by state law. State law prohibits you from making any further disclosure of this information without the specific written consent of the person to whom it pertains, or as otherwise permitted by law. Any unauthorized further disclosure in violation of state law may result in a fine or assisted sentence or both. A general authorization for the release of medical or other information is NOT sufficient authorization for further disc losure. Family History Family Member Name Family Member Gender Family Member Status Date o f Status Description Data Source(s) Unknown Unknown Problem [facility] ([facility], ) maternal grandmother dx in her 40s Encounters Encounter Providers Location Date Indications Data Source(s ) Outpatient Attender: Yoseph Gaviria MD Main Office 06/03/2021 03:00:00 PM EDT [facility] ([facility]) Unknown [address] [facility] [id number] 05/30/2021 12:00:00 AM EDT eCW1 ([facility]) Outpatient Attender: Yoseph Gaviria MD Main Office 12/31/2020 03:00:00 PM EDT [facility] ([facility]) Outpatient Attender: Yoseph Gaviria MD Main Office 05/21/2020 11:15:00 AM EDT [facility] ([facility]) Medications Medication Brand Name Start Date Product Form Dose Route Admi nistrative Instructions Pharmacy Instructions Status Indications Reaction Description Data Source(s) Aluminum Hydroxide 160 MG / magnesium carbonate 105 MG Chewable Tablet Gaviscon Extra Strength 06/03/2021 12:00:00 AM EDT ORAL active [facility] ([facility]) Omeprazole 40 MG Delayed Release Oral Capsule Omeprazole 05/21/2020 12:00:00 AM EDT ORAL active [facility] ([facility]) Insurance Providers Payer name Policy type / Coverage type Policy ID Covered constitution party ID Covered constitution party's relationship to serna Policy Serna Plan Information ELY [id number] [facility] [id number] SP [id number] Managed Care - [facility] P UNAVAILABLE S UNAVAILABLE Medicaid S UNAVAILABLE S UNAVAILA BLE [facility] [id number] SP [id number] ELY [id number] 300 ANSI-Not a Secondary Insurance [id number] ANSI-Commercial [id number] ANSI-Medicaid [id number] ANSI-Commercial [id number] ANSI-Commercial [id number] ANSI-Not a Secondary Insurance [id number] ANSI-Commercial [id number] ANSI-Medicaid [id number] [facility] [place] Medicaid [id number] [facility] [id number] ANSI-Commercial [id number] ANSI-Commercial [id number] ANSI-Not a Secondary Insurance [id number] ANSI-Medicaid [id number] ANSI-Commercial [id number] ANSI-Medicaid [id number] ANSI-Commercial [id number] ANSI-Not a Secondary Insurance [id number] ANSI-Not a Secondary Insurance [id number] ANSI-Commercial [id number] ANSI-Medicaid [id number] ANSI-Commercial [id number] [facility] [place] Medicaid [id number] Self [id number] ANSI-Not a Secondary Insurance [id number] ANSI-Medicaid [id number] ANSI-Commercial [id number]-[id number] ANSI-Commercial [id number] ANSI-Medicaid [id number] ANSI-Commercial [id number]-[id number] ANSI-Commercial [id number]-05zj-[id number]-52uc-[id number] ANSI-Not a Secondary Insurance [id number] ANSI-Not a Secondary Insurance [id number]-oxs8-m8cdk [id number]-9ul8-yya3-[id number] ANSI-Medicaid [id number] ANSI-Commercial [id number]-m39g-[id number] [id number]-x77s-7fpm8z8o06f9 ANSI-Commercial [id number]-105v-05i9-yo64-[id number] [id number]-812v-81n7-vo57-[id number] ANSI-Medicaid [id number] ANSI-Commercial [id number]-akd2-18ox-[id number]-[id number] ANSI-Commercial u95oz8ie-cgij-0b8c-4uu2-cd4amdi286x7 i72qx7uz-tapk-8f6w-0gq1-[id number] ANSI-Not a Secondary Insurance [id number]-o57rr [id number]-i3yd-[id number] ANSI-Commercial [id number]-svnu-17d7-[id number] [id number]-jmid-33o6-c2z8-[id number] ANSI-Commercial [id number]-4f5p-[id number] ij490ak2-204q-3b9c-[id number] ANSI-Medicaid [id number] ANSI-Not a Secondary Insurance [id number] ANSI-Not a Secondary Insurance [id number] 7ctar2a [id number]-7ghd-2q4x-[id number] ANSI-Commercial [id number]-[id number]-02ak-9r00-[id number] ANSI-Commercial [id number]-[id number]-[id number] [id number]-7zq9-9795-784z-[id number] ANSI-Medicaid [id number] ANSI-Not a Secondary Insurance [id number] ANSI-Commercial [id number]-99mw-2390-[id number] [id number]-71xt-2658-q095-[id number] ANSI-Commercial [id number] ANSI-Medicaid [id number] ANSI-Not a Secondary Insurance [id number] [id number]-080f-7k72-[id number] ANSI-Commercial [id number] ANSI-Commercial [id number] [id number] ANSI-Medicaid [id number] MEDICAID [id number] SP [id number] [facility] Medicaid [id number] Self [id number] SELF PAY ONLY [facility]NAVAILABLE [facility] [id number] S [id number] [employer] COMM[employer] PLAN MCDO [id number] SP [id number] SELF PAY UNAVAILABLE SP UNAVAILA BLE BLUE CROSS AZAR PLAN [id number] SP [id number] MEDICAID [id number] SP [id number] [employer] [place] WAT[place] 306/806 [id number] MO [id number] PROCLAIM SMC EJN SKH [id number] [place] [id number] P UNAVAILABLE UNAVAILA BLE EXCELLUS BCBS P [id number] S [id number] [facility] [id number] SP [id number] Problems, Conditions, and Diagnoses Code Display Name Description Problem Type Effective Dates Data Source(s) 869535370 Gastroesophageal reflux disease Gastroesophageal reflux disease Problem 05/21/2020 12:00:00 AM EDT [facility] ([facility]) Surgeries/Procedures Procedure Description Date Indications Data Source(s) OFFICE OUTPATIENT VISIT 15 MINUTES 06/03/2021 12:00:00 AM EDT [facility] ([facility]) UPPER NDSC BIOPSY SINGLE/MULTIPLE 01/13/2021 12:00:00 AM EDT [facility] ([facility]) OFFICE OUTPATIENT VISIT 15 MINUTES 12/31/2020 12:00:00 AM EDT [facility] ([facility]) Results ID Date Data Source [id number] 05/30/2021 11:40:00 AM EDT [facility] Name Value Range Interpretation Code Description Data Kathy rce(s) Supporting Document(s) SARS-CoV-2 (COVID-19) RNA [Presence] in Respiratory specimen by YADY with probe detection Not Detected [facility] This lab was ordered by [facility] and reported by [facility]. ID Date Data Source [id number] 01/13/2021 11:22:00 AM EDT [facility] ([facility]) Name Value Range Interpretation Code Description Data Kathy rce(s) Supporting Document(s) Surgical pathology study Laboratory test result [facility] ([facility]) <content>FINAL DIAGNOSIS</content>
< content></content>
<content>A - Stomach, antrum, biopsy:</content>
<content>Gastric mucosa with reactive gastropathy.</content>
<content>No evidence for H. pylori-like organisms on H&E stain.</content>
<content></content>
<content>B - Below Z-line, biopsy:</content>
<content>Junctional mucosa with mild chronic inflammation. </content>
<content>No evidence for intestinal metaplasia.</content>
<content></content>
<content>C - Esophagus, mid, biopsy:</content>
<content>Squamous mucosa with no significant pathologic changes.</content>
<content>No evidence for eosinophilic esophagitis.</content>
<content>01/14/2021 - 1400</content>
<content></content>
<content>CLINICAL DIAGNOSIS</content>
<content></content>
<content>Chronic reflux</content>
<content>01/14/2021 - 721</content>
<content></content>
<content>GROSS DIAGNOSIS</content>
<content></content>
<content>A - Received in formalin labeled "biopsy antrum" and consists of two</content>
<content>fragments of sorensen tissue 0.4 x 0.3 x 0.2 cm. in aggregate. All in one.</content>
<content></content>
<content>B - Received in formalin labeled "below Z line biopsy" and consists of</content>
<content>three fragments of sorensen tissue 0.3 x 0.2 x 0.1 cm. in aggregate. All in</content>
<content>one.</content>
<content></content>
<content>C - Received in formalin labeled "mid esophagus biopsy" and consists of</content>
<content>two fragments of sorensen tissue 0.3 x 0.2 x 0.1 cm. in aggregate. All in</content>
<content>one.</content>
<content>- SV</content>
<content>01/14/2021 - 721</content>
<content></content>
<content>Signed DARWIN BELL MD 01/14/2021 1408</content>
<content></content> ID Date Data Source [id number] 01/08/2021 11:50:00 AM EDT [facility] Name Value Range Interpretation Code Description Data Kathy rce(s) Supporting Document(s) SARS-CoV-2 (COVID-19) RNA [Presence] in Respiratory specimen by YADY with probe detection Not Detected [facility] This lab was ordered by [facility] and reported by [facility]. Procedure Social History No Information Vital Signs ID Date Data Source UNK Name Value Range Interpretation Code Description Data Source(s) Body height 70 [in_i] 70 [in_i] [facility] 5'10" Body weight 186.00 [lb_av] 186.00 [lb_av] [facility] T ([facility]) Diastolic blood pressure 78 mm[Hg] 78 mm[Hg] [facility] ([facility]) Heart rate 86 /min 86 /min [facility]) Body mass index (BMI) [Ratio] 26.7 kg/m2 26.7 k g/m2 [facility] ([facility]) Body weight 84.370 kg 84.370 kg [facility] ([facility]) Systolic blood pressure 117 mm[Hg] 117 mm[Hg] M ED[facility] ([facility]) Body temperature 97.5 [degF] 97.5 [degF] [facility] ([facility]) Heart rate 78 /min 78 /min [facility] ([facility]) Body height 70 [in_i] 70 [in_i] [facility] 5'10" Body weight 200.00 [lb_av] 200.00 [lb_av] [facility] T ([facility]) Systolic blood pressure 124 mm[Hg] 124 mm[Hg] M EDENT ([facility]) Diastolic blood pressure 97 mm[Hg] 97 mm[Hg] [facility] ([facility]) Body temperature 98.1 [degF] 98.1 [degF] [facility] ([facility]) Body mass index (BMI) [Ratio] 28.7 kg/m2 28.7 k g/m2 [facility] ([facility]) Body weight 90.720 kg 90.720 kg [facility] ([facility]) Body mass index (BMI) [Ratio] 30.1 kg/m2 30.1 k g/m2 [facility] ([facility]) Body weight 210.00 [lb_av] 210.00 [lb_av] [facility] T ([facility]) Systolic blood pressure 126 mm[Hg] 126 mm[Hg] M [facility] ([facility]) Diastolic blood pressure 81 mm[Hg] 81 mm[Hg] [facility] ([facility]) Heart rate 74 /min 74 /min [facility] ([facility]) Body weight 95.256 kg 95.256 kg [facility]) Body height 70 [in_i] 70 [in_i] [facility]) 5'10" Body height 70 [in_i] 70 [in_i] [facility]) 5'10" Body weight 210.00 [lb_av] 210.00 [lb_av] MEDEN T ([facility]) Temp 97.2 Systolic blood pressure 126 mm[Hg] 126 mm[Hg] M EDENT ([facility]) Diastolic blood pressure 81 mm[Hg] 81 mm[Hg] [facility] ([facility]) Heart rate 74 /min 74 /min [facility] ([facility]) Body mass index (BMI) [Ratio] 30.1 kg/m2 30.1 k g/m2 [facility] ([facility]) Body weight 95.256 kg 95.256 kg [facility])
[2021-07-16] MEDS ORDERED: KETOROLAC TROMETHAMINE 10 MG TAB PO ONE (17:20)
[2021-07-16] MEDS ORDERED: DICL20GE TP (17:27)
--- OUTSIDE RECORDS SUMMARY | 2021-07-16 17:30 | CCD ---
Author Author [facility] Organization [facility] Address Unknown Phone Unavailable Care Team Providers Care Glass Etcher Name Role Phone Eileen Gaviria MD Unavailable [...] is protected by Article 27-F of the [facility] Public Health law. If you continue you may have access to information: Regarding HIV / AIDS; Provided by facilities licensed or operated by the [facility] Office of Mental Health; or Provided by the [facility] Office for People With Developmental Disabilities. If such information is present, then the following [facility] mandated warning applies: This information has [...] law may result in a fine or correction sentence or both. A general authorization for the release of medical or other information is NOT sufficient authorization for further disc losure. Family History Family Member Name Family Member Gender Family Member Status Date o f Status Description Data Source(s) Unknown Unknown Problem [facility] ([facility], ) maternal grandmother dx in her 40s Encounters Encounter Providers Location Date Indications Data Source(s ) Outpatient Attender: Yoseph Gaviria MD Main Office 06/03/2021 03:00:00 PM EDT [facility] ([facility]) Unknown [address] [facility] [place] [address] 05/30/2021 12:00:00 AM EDT eCW1 ([facility]) Outpatient Attender: Yoseph Gaviria MD Main Office [...] AM EDT ORAL active [facility] ([facility]) Insurance Providers Payer name Policy type / Coverage type Policy ID Covered republican ID Covered republican's relationship to serna Policy Serna Plan Information ELY [id number] [facility] [id number] SP [id number] Managed Care - [facility] P UNAVAILABLE S UNAVAILABLE Medicaid S UNAVAILABLE S UNAVAILA BLE [facility] [id number] SP [id number] ELY [id number] 300 ANSI-Not a Secondary Insurance [id number] ANSI-Commercial [id number] ANSI-Medicaid [id number] ANSI-Commercial [id number] ANSI-Commercial [id number] ANSI-Not a Secondary Insurance [id number]-vl2v-[id number] ANSI-Commercial 512tahu5-c750-38p4-y0u8-[id number] [id number]-w610-97m4-a1g8-[id number] ANSI-Medicaid [id number] [facility] [place] Medicaid [id number] [facility] [id number] ANSI-Commercial [id number]-[id number] ANSI-Commercial ymfh68l3-v06d-782n-03z2-[id number] znws11o5-u34o-554t-10v5-zp2ir6qq0oer ANSI-Not a Secondary Insurance [id number] ANSI-Medicaid [id number] ANSI-Commercial [id number]-l8o4-919w-[id number] ANSI-Medicaid [id number] ANSI-Commercial [id number]-[id number]-912l-[id number] ANSI-Not a Secondary Insurance [id number]-[id number]-6x44-4p55-7rek5i2p2er5 ANSI-Not a Secondary Insurance [id number]-[id number] ANSI-Commercial [id number]-[id number] ANSI-Medicaid [id number] ANSI-Commercial [id number]-7u9k-[id number]-[id number] [facility] [place] Medicaid [id number] Self [id number] ANSI-Not a Secondary Insurance [id number] ANSI-Medicaid [id number] ANSI-Commercial 299o8a32-0vw3-992x-[id number] 967b7i78-2ph1-113y-fv99-2zw227b4om81 ANSI-Commercial 4k2m51fv-36l5-63ga-[id number] 5z8m39kd-92d6-40vv-[id number] ANSI-Medicaid [id number] ANSI-Commercial [id number]-k16c-[id number] 9c75cy38-1440-2u9d-r23q-[id number] ANSI-Commercial 95idh213-55ca-70xf-b8d2-52390hj462p9 37ycs255-21ju-90rz-w1f4-42476on746y6 ANSI-Not a Secondary Insurance [id number]-9248-27sq-511r-[id number] ANSI-Not a Secondary Insurance [id number]-5vh2-aiu5-x2eal ab2kj50 [id number]-2lk6-ybe2-c5gnves3kh99 ANSI-Medicaid [id number] ANSI-Commercial w6o3iay5-3a30-9q26-b15g-9soa4a9s82m4 c0z4wsu1-2x54-8r61-c26a-6dko7u7t23o6 ANSI-Commercial ic0lh43m-567u-96x2-or36-erhpre822pk2 cj5pa23x-625g-43d3-ql35-ndqxrr000qf8 ANSI-Medicaid [id number] ANSI-Commercial [id number]-deb7-40ds-[id number]-dsc8-52fn-[id number] ANSI-Commercial m17it5qj-fdba-8r0v-2ti1-jk7bvvq012r0 x82ec8el-migw-6b6b-2oz8-of6bhjz008z5 ANSI-Not a Secondary Insurance [id number]-3512-s5vp-s29bv l4wg2f5 1tf76jf5-7yxa-4597-l1ts-a76zyn6uw3l6 ANSI-Commercial 0u4nh45y-ugoo-95w6-k3h5-t4dys84704l7 8f2xf87l-rxqr-72k8-c0y6-i1hvt37018b0 ANSI-Commercial mw748be6-220e-9d5r-l509-0h6z0i61h8e2 ab074od6-316f-1k1z-g056-9w5u9u95t9m4 ANSI-Medicaid [id number] ANSI-Not a Secondary Insurance [id number] [id number] gq00et07-b02r-2n9j-[id number] ANSI-Not a Secondary Insurance [id number]-1rhr-[id number]-2t650 6pcdo3t 737k8053-h0yh-4scd-4j9g-6j6467eqmr2l ANSI-Commercial 6w4z5865-396w-12hu-0f22-h00vnh12788j 2h4z5510-485a-81ya-0k48-f04ozo58666j ANSI-Commercial k0a90r0t-3kp0-6534-165d-a810y559a7x0 h0g19x1d-5id8-7755-899l-n578o674z2z7 ANSI-Medicaid [id number] ANSI-Not a Secondary Insurance [id number]-[id number]-[id number] ANSI-Commercial wql4654a-33ob-0648-r893-g62d45up385l drx1041n-63wq-2749-s540-k35g84wd740s ANSI-Commercial 72l5271v-810y-189a-[id number] 86p4811c-145z-667a-[id number] ANSI-Medicaid [id number] ANSI-Not a Secondary Insurance 62h4vort-602h-8y12-uhd7-56c8b 56beabb 55a1fcyx-011x-2t34-qpp1-99r0d52yrwkf ANSI-Commercial [id number]-5j28-91x5-4rn3-[id number] 3qr1817x-5w84-92c0-3cf5-[id number] ANSI-Commercial l0e26ig1-5t7b-1550-530d-9648xgbfi594 d5y09hi7-3n7j-0533-105f-6490xqbbv072 ANSI-Medicaid [id number] MEDICAID [id number] SP [id number] [facility] Medicaid [id number] Self [id number] SELF PAY ONLY UNAVAILABLE [facility] O [id number] S [id number] [employer] COMM[employer] PLAN MCDO [id number] SP [id number] SELF PAY UNAVAILABLE SP UNAVAILA BLE BLUE CROSS AZAR PLAN [id number] SP [id number] MEDICAID [id number] SP [id number] [employer] [place] WATN 306/806 [id number] MO [id number] PROCLAIM SMC EJN SKH [id number] DC [id number] P UNAVAILABLE UNAVAILA BLE EXCELLUS BCBS P [id number] S [id number] [facility] [id number] SP [id number] Problems, Conditions, and Diagnoses Code Display Name Description Problem Type Effective Dates Data Source(s) 658200207 Gastroesophageal reflux disease Gastroesophageal reflux disease Problem 05/21/2020 12:00:00 AM EDT [facility] ([facility]) Surgeries/Procedures Procedure Description Date Indications Data Source(s) OFFICE OUTPATIENT VISIT 15 MINUTES 06/03/2021 12:00:00 AM EDT [facility] ([facility]) UPPER NDSC BIOPSY SINGLE/MULTIPLE 01/13/2021 12:00:00 AM EDT [facility] ([facility]) OFFICE OUTPATIENT VISIT 15 MINUTES 12/31/2020 12:00:00 AM EDT [facility] ([facility]) Results ID Date Data Source [id number] 05/30/2021 11:40:00 AM EDT [facility] Name Value Range Interpretation Code Description Data Kathy rce(s) Supporting Document(s) SARS-CoV-2 (COVID-19) RNA [Presence] in Respiratory specimen by YADY with probe detection Not Detected [facility] This lab was ordered by [facility] and reported by [employer]. ID Date Data Source [id number] 01/13/2021 11:22:00 AM EDT [facility] ([facility]) Name Value Range Interpretation Code Description Data Kathy rce(s) Supporting Document(s) Surgical pathology study Laboratory test result MEDENT ([facility]) <content>FINAL DIAGNOSIS</content>
< content></content>
<content>A - Stomach, [...] 1400</content>
<content></content>
<content>CLINICAL DIAGNOSIS</content>
<content></content>
<content>Chronic reflux</content>
<content>01/14/2021721</content>
<content></content>
<content>GROSS DIAGNOSIS</content>
<content></content>
<content>A - Received [...] 721</content>
<content></content>
<content>Signed DARWIN BELL MD 01/14/2021 6351</content>
<content></content> ID Date Data Source [id number] 01/08/2021 11:50:00 AM EDT [facility] Name Value Range Interpretation Code Description Data Kathy rce(s) Supporting Document(s) SARS-CoV-2 (COVID-19) RNA [Presence] in Respiratory specimen by YADY with probe detection Not Detected [facility] This lab was ordered by [facility] and reported by [employer]. Procedure Social History No Information Vital Signs ID Date Data Source UNK Name Value Range Interpretation Code Description Data Source(s) Body height 70 [in_i] 70 [in_i] [facility] 5'10" Body weight 186.00 [lb_av] 186.00 [lb_av] MEDEN T ([facility]) Systolic blood pressure 117 mm[Hg] 117 mm[Hg] M EDENT ([facility]) Diastolic blood pressure 78 mm[Hg] 78 mm[Hg] [facility] ([facility]) Heart rate 86 /min 86 /min [facility]) Body mass index (BMI) [Ratio] 26.7 kg/m2 26.7 k g/m2 [facility] ([facility]) Body weight 84.370 kg 84.370 kg [facility] ([facility]) Body temperature 97.5 [degF] 97.5 [degF] [facility] ([facility]) Body height 70 [in_i] 70 [in_i] [facility] 5'10" Body weight 200.00 [lb_av] 200.00 [lb_av] MEDEN T ([facility]) Systolic blood pressure 124 mm[Hg] 124 mm[Hg] M EDENT ([facility]) Diastolic blood pressure 97 mm[Hg] 97 mm[Hg] [facility] ([facility]) Heart rate 78 /min 78 /min [facility] ([facility]) Body mass index (BMI) [Ratio] 28.7 kg/m2 28.7 k g/m2 [facility] ([facility]) Body weight 90.720 kg 90.720 kg [facility]) Body temperature 98.1 [degF] 98.1 [degF] [facility] ([facility]) Body mass index (BMI) [Ratio] 30.1 kg/m2 30.1 k g/m2 [facility] ([facility]) Body height 70 [in_i] 70 [in_i] [...]
[2021-07-16 17:40] VITALS: BP 111/70
== END 2021-07-16 17:41 | disposition home or self-care (01) ==
LOC: M ED 13:04
DX: M75.22 Bicipital tendinitis, left shoulder (principal); M77.9 Enthesopathy, unspecified; F17.210 Nicotine dependence, cigarettes, uncomplicated

== ENCOUNTER 2021-07-27 10:51 | Emergency (ER) | payer OTHER ==
[~2021-07-27] VITALS: Ht 177.8 cm; Wt 86.4 kg
[~2021-07-27 10:51] MED LIST changes: +DICL20GE TP
--- OUTSIDE RECORDS SUMMARY | 2021-07-27 10:59 | CCD ---
Author Author [facility] Organization [facility] Address Unknown Phone Unavailable Care Team Providers Care Community Support Specialist Name Role Phone Yaneth Nielsen Unavailable PROBLEMS Type Condition ICD9-CM Code XPS49-KA Code Onset Dates Condition S tatus W/U Status Risk SNOMED Code Notes Problem Anxiety F41.9 Active confirmed 44862331 Problem Other tobacco product nicotine dependence, uncomplicated F17.290 Active confirmed 47726140 Problem Obstructive sleep apnea G47.33 Active confirmed 13294536 Problem Irritable bowel syndrome with both constipation and diarrh ea K58.2 Active confirmed 22050232 Problem Diverticulosis large intestine w/o perforation o r abscess w/bleeding K57.31 Active confirmed 7523570 Problem Gastroesophageal reflux disease without esophagitis K21.9 Active confirmed 329918343 Problem Vitamin D deficiency E55.9 Active confirmed 88781178 ALLERGIES Allergen (clinical drug ingredient) Drug/Non Drug Allergy do cumented on EMR Reaction Allergy Type Onset Date Status sertraline Sertraline HCl([facility] Code:[address]-85) Panic Attack Drug A llergy Active venlafaxine Venlafaxine HCl([facility] Code:[address]-06) Panic Attack Drug Allergy Active ENCOUNTERS from 1995 to 2021-07-16 Encounter Location Date Provider Diagnosis [address] [phone] [place] [address] Jul, Yaneth Rayi IMMUNIZATIONS Vaccine Route Administration Date [...] Education Language: Question Answer Notes Languages spoken: [place] Holiness: Question Answer Notes Holiness 08 Alevism No advent beliefs that would impact health care. Drug [...] Information RESULTS No Results REASON FOR VISIT Exposed to COVID MEDICAL (GENERAL) HISTORY Type Description Date Medical [...] Once a day for 30 day(s) 2018 Next Appt Details Provider Name:Pro Sujit, 2021-08-15 0 8:30:00 AM, [address] [facility] , , [place], [address], Insurance Providers Payer Name Payer Address Payer Phone Insured Name Patient Relati onship to Insured Coverage Start Date Coverage End Date [facility] [address] [place] [address] SKIP MICHAELS self
--- OUTSIDE RECORDS SUMMARY | 2021-07-27 10:59 | CCD ---
Author Author [facility] Organization [facility] Address Unknown Phone Unavailable Care Team Providers Care Chief Librarian Branch Or Department Name Role Phone Eileen Gaviria MD Unavailable [...] Unavailable Everette, S Yoseph MD Unavailable Unavailable Evreette, S Yoseph MD Unavailable Unavailable Everette, S [...] is protected by Article 27-F of the [facility] Public Health law. If you continue you may have access to information: Regarding HIV / AIDS; Provided by facilities licensed or operated by the [facility] Office of Mental Health; or Provided by the [facility] Office for People With Developmental Disabilities. If such information is present, then the following [facility] mandated warning applies: This information has [...] law may result in a fine or chcf sentence or both. A general authorization for the release of medical or other information is NOT sufficient authorization for further disc losure. Family History Family Member Name Family Member Gender Family Member Status Date o f Status Description Data Source(s) Unknown Unknown Problem MEDENT ([facility], ) maternal grandmother dx in her 40s Encounters Encounter Providers Location Date Indications Data Source(s ) Unknown [address] [facility] [address] 07/15/2021 12:00:00 AM EDT eCW1 ([facility]) Outpatient Attender: Yoseph Gaviria MD Main Office 06/03/2021 03:00:00 PM EDT [facility] ([facility]) Unknown [address] [facility] [address] 05/30/2021 12:00:00 AM EDT eCW1 ([facility]) Outpatient Attender: Yoseph Gaviria MD Main Office 12/31/2020 03:00:00 PM EDT MEDENT ([facility]) Medications Medication Brand Name Start Date Product Form Dose Route Admi nistrative Instructions Pharmacy Instructions Status Indications Reaction Description Data Source(s) Aluminum Hydroxide 160 MG / magnesium carbonate 105 MG Chewable Tablet Gaviscon Extra Strength 06/03/2021 12:00:00 AM EDT ORAL active MEDENT ([facility]) Insurance Providers Payer name Policy type / Coverage type Policy ID Covered libertarian ID Covered libertarian's relationship to serna Policy Serna Plan Information ELY [id number] [address] [facility] [id number] SP [id number] Managed Care - [facility] P UNAVAILABLE S UNAVAILABLE Medicaid S UNAVAILABLE S UNAVAILA BLE [facility] [id number] SP [id number] ELY [id number] 300 ANSI-Not a Secondary Insurance [id number] 00aaafa [id number] ANSI-Commercial [id number] [id number] ANSI-Medicaid [id number] ANSI-Commercial [id number]-[id number] 0s2781x7-7t4g-9vl2-73d9-81vl9s6220l1 ANSI-Commercial [id number]-6671-a58z-f10ei55w970m a0309364-6q3c-3387-l70y-y94pj77p853a ANSI-Not a Secondary Insurance [id number]-ej0g-e7umk [id number] i033nsjl-0261-5i6n-xk4r-l4bys35l0l63 ANSI-Commercial 534tlbm1-u942-12n6-b0g6-ii422l60p1me 004ynqx0-t505-80m0-p5y2-ju508d39y9sv ANSI-Medicaid [id number] [facility] [place] Medicaid [id number] [id number] Self [id number] ANSI-Commercial [id number]-ca62-52k1-z11b-[id number] g266984n-mf76-42k8-j22n-3qt57b611861 ANSI-Commercial sklr13e1-o87p-624f-77x6-gi2gp5xd5ulu cqpq55y1-j45q-131u-34p8-iu7vg8if8kue ANSI-Not a Secondary Insurance [id number]-[id number] [id number] z536ch0c-[id number] ANSI-Medicaid [id number] ANSI-Commercial [id number]-o3c7-828j-or32-0ef74m14555g 057l193v-z2c5-976m-[id number] ANSI-Medicaid [id number]-[id number] ANSI-Commercial u9829n9r-x200-417f-536x-49p7g18v555y c8586k6i-d800-468e-697w-93g0a96s351v ANSI-Not a Secondary Insurance [id number]-4m2p-9g93-7k87-7xjc1 x8n1sg0 sa6d240v-5u2x-1g62-6e48-5adi4l1a6ow2 ANSI-Not a Secondary Insurance [id number]-91vz-7655-2385-k27ca v3cy6q8 0d61955b-84lj-1307-1065-l12pgj2qn3z2 ANSI-Commercial 96549yw1-3b0o-4zr8-9850-0491828xe9z3 71566cx0-1f9y-9lr4-6727-0419904ig6s7 ANSI-Medicaid [id number] ANSI-Commercial 8119q213-m656-957r-5y0q-w0108q69u914 2260s691-h022-548c-5y0x-f5540u45h162 [facility] [facility] [place] Medicaid [id number] Self [id number] ANSI-Not a Secondary Insurance [id number] q8c77al o24flgx4-7v46-4l80-8a04-5qj45d6b79xe ANSI-Medicaid [id number]-gm8q-27t3-[id number] ANSI-Commercial 843h3q54-1ul4-471z-ty24-7bk058e3hc43 827g7p76-0sd0-781r-ei04-4fv739z3hq59 ANSI-Commercial 1l8y24ao-56q1-40iz-a251-219140059827 4h7m47do-97i4-95dj-d726-448166227910 ANSI-Medicaid [id number] ANSI-Commercial 7l32sh40-8423-6r6w-y78w-81373227g746 9e00fm58-0617-1r2r-n71m-46198609g931 ANSI-Commercial 04wsj592-45zj-63xo-y8j4-93177lw730f7 46qwe262-23zq-84zw-j7p7-43235pn533t6 ANSI-Not a Secondary Insurance [id number]-7569-30cf-664c-32086 31218x0 40452c1j-0122-44bw-933v-5936108369b2 ANSI-Not a Secondary Insurance 3uhq50b7-32yu-0co8-rsu6-c8afa ix0os76 8khb33b1-00kp-2zv0-cro2-b9xwsbx9zf55 ANSI-Medicaid [id number] ANSI-Commercial p0m8ohq9-7y33-3x25-y00y-4aue9f7r68n6 m6f8caj1-4h49-8u96-c09x-2uuj6g5w91j8 ANSI-Commercial fg5ez00l-693n-77b5-ew51-kahffb215it0 yp9zr64s-545v-26b0-ea16-udwhve195ff0 ANSI-Medicaid [id number] ANSI-Commercial 0z53cv52-qkp8-53eo-ai19-32sy66798912 7h35bb43-csf5-77xb-dy94-25cd54481592 ANSI-Commercial u64jg0oe-tnqa-8i1f-9xu4-ap2aamu476a3 w99tr9cg-ujnl-2a0r-8tw0-vr5mumc438y4 ANSI-Not a Secondary Insurance 8lr92og8-0ruy-5587-c9rv-y19tj r2fw5r9 4ni37xr2-6noh-1642-c7lh-x55xux5uc8d4 ANSI-Commercial 9b5bc12j-vkun-49a9-b3w1-t3ypn55074u0 3x3sh31w-gctt-24x3-i8r2-o5gnm76165c2 ANSI-Commercial fc193wk4-337f-2e6e-u732-1q8v3y45l3v4 qk419og2-012e-8z9c-k260-4s8d7k49s2p7 ANSI-Medicaid [id number]-h013-9k87-ls20-r45ym8e981b4 ANSI-Not a Secondary Insurance [id number]-u08e-8a9f-l106-2e632 781qo07 le71qe61-z53d-6d8k-m658-8x961639kf16 ANSI-Not a Secondary Insurance 756x7322-g4dy-0spf-4i2q-5g185 3ogjq1k 391c8058-j4ov-8mkt-6q3s-2k6772zkuj4z ANSI-Commercial 0l0f4246-354l-60rk-1r77-v63bzo54721z 4o5k5589-448l-00sz-6q49-e52sfu60333t ANSI-Commercial y4y93m5o-0ew6-5115-012p-f052n229z7b4 c5s22r0f-1zh9-9747-257x-f125y778h6s9 ANSI-Medicaid [id number] ANSI-Not a Secondary Insurance 369f2ssw-96l5-97a6-7359-h58d6 [id number] 740f9dvz-60g0-27i9-0789-r83q71814923 ANSI-Commercial lld4568z-41yz-8763-c893-l64s40dl984e jad7478o-71fa-1897-g492-z95y87wz226r ANSI-Commercial 72o6792a-746z-587x-7198-18g1583453s4 70d5284p-563t-300e-9682-78k6751025o7 ANSI-Medicaid [id number]-32sc-[id number] ANSI-Not a Secondary Insurance 63y1pnuj-932l-5m25-adl3-70x4t 56beabb 96t1rvpt-460o-6a75-xbj2-41w9y94ndpcf ANSI-Commercial 6if3115b-3y09-48y6-4dp2-enlx5306v627 4qv2741p-2k95-70m6-8bb8-darv2457o955 ANSI-Commercial b4x15au9-8r9n-8348-182f-0777iwglz633 n0r99kl7-1c7u-5630-735m-1167qbvst583 ANSI-Medicaid [id number]-[id number] MEDICAID [id number] SP [id number] [facility] [facility] [place] Medicaid [id number] Self [id number] SELF PAY ONLY UNAVAILABLE [facility] O [id number] S [id number] UNHC COMMUNITY PLAN MCDHMO [id number] SP [id number] SELF PAY UNAVAILABLE SP UNAVAILA BLE BLUE CROSS AZAR PLAN [id number] SP [id number] MEDICAID [id number] SP [id number] [place] 306/806 [id number] [place] [id number] PROCLAIM SMC E[facility] [id number] [place] [id number] P UNAVAILABLE UNAVAILA BLE EXCELLUS BCBS P [id number] S [id number] [id number] [facility] [id number] SP [id number] Problems, Conditions, and Diagnoses No Information Surgeries/Procedures Procedure Description Date Indications Data Source(s) OFFICE OUTPATIENT VISIT 15 MINUTES 06/03/2021 12:00:00 AM EDT MEDENT ([facility]) UPPER NDSC BIOPSY SINGLE/MULTIPLE 01/13/2021 12:00:00 AM EDT MEDENT ([facility]) OFFICE OUTPATIENT VISIT 15 MINUTES 12/31/2020 12:00:00 AM EDT MEDENT ([facility]) Results ID Date Data Source [id number] 07/15/2021 12:00:00 AM EDT [facility] Name Value Range Interpretation Code Description Data Kathy rce(s) Supporting Document(s) SARS-CoV2 Rapid Antigen Negative [facility] This lab was ordered by [facility] and reported by [facility]. ID Date Data Source [id number] 05/30/2021 11:40:00 AM EDT [facility] Name Value Range Interpretation Code Description Data Kathy rce(s) Supporting Document(s) SARS-CoV-2 (COVID-19) RNA [Presence] in Respiratory specimen by YADY with probe detection Not Detected [facility] This lab was ordered by [facility] and reported by [employer]. ID Date Data Source [id number] 01/13/2021 11:22:00 AM EDT MEDENT ([facility]) Name Value Range Interpretation Code Description Data Kathy rce(s) Supporting Document(s) Surgical pathology study Laboratory test result MEDENT ([facility]) <content>FINAL DIAGNOSIS</content>
< content></content>
<content>A - Stomach, [...] 01/14/2021 1408</content>
<content></content> ID Date Data Source [id number] 01/08/2021 11:50:00 AM EDT [facility] Name Value Range Interpretation Code Description Data Kathy rce(s) Supporting Document(s) SARS-CoV-2 (COVID-19) RNA [Presence] in Respiratory specimen by YADY with probe detection Not Detected [facility] This lab was ordered by [facility] and reported by [employer]. Procedure Social History No Information Vital Signs [...] kg 90.720 kg [facility] ([facility]) Heart rate 78 /min 78 /min [facility] ([facility])
[2021-07-27] MEDS ORDERED: METOCLOPRAMIDE INJ 10MG/2ML VIAL (J2765 PER 1) IV ONE (12:15)
[2021-07-27] MEDS ORDERED: KETOROLAC 30 MG/ML 1ML VIAL IV ONE (12:15)
[2021-07-27] MEDS ORDERED: diphenhydrAMINE 50MG/ML VIAL (J1200) IV STA (12:15)
[2021-07-27] MEDS ORDERED: NS 1,000 ML IV ONE (12:15)
[2021-07-27] MEDS ORDERED: PSEUDOEPHEDRINE 30 MG TAB PO STA (12:15)
--- OUTSIDE RECORDS SUMMARY | 2021-07-27 12:30 | CCD ---
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 If you continue you may have access to information: Regarding HIV / AIDS; Provided by facilities licensed or operated by the [facility] Office of Mental Health; or Provided by the [facility] Office for People With Developmental Disabilities. If such information is present, then the following [facility] mandated warning applies: This information has been [...] law may result in a fine or fci sentence or both. A general authorization for the release of medical or other information is NOT sufficient authorization for further disc losure. Family History Family Member Name Family Member Gender Family Member Status Date o f Status Description Data Source(s) Unknown Unknown Problem MEDENT ([facility], ) maternal grandmother dx in her 40s Encounters Encounter Providers Location Date Indications Data Source(s ) Unknown [address] [facility] [address] 07/15/2021 12:00:00 AM EDT eCW1 ([facility]) Outpatient Attender: Yoseph Gaviria MD Main Office 06/03/2021 03:00:00 PM EDT [facility] ([facility]) Unknown [address] [facility] [address] 05/30/2021 12:00:00 AM EDT eCW1 ([facility]) Outpatient Attender: Yoseph Gaviria MD Main Office 12/31/2020 03:00:00 PM EDT MEDENT ([facility]) Medications Medication Brand Name Start Date Product Form Dose Route Admi nistrative Instructions Pharmacy Instructions Status Indications Reaction Description Data Source(s) Aluminum Hydroxide 160 MG / magnesium carbonate 105 MG Chewable Tablet Gaviscon Extra Strength 06/03/2021 12:00:00 AM EDT ORAL active MEDENT ([facility]) Insurance Providers Payer name Policy type / Coverage type Policy ID Covered constitution party ID Covered constitution party's relationship to serna Policy Serna Plan Information ELY [id number] [address] [facility] [id number] SP [id number] Managed Care - [facility] P UNAVAILABLE S UNAVAILABLE Medicaid S UNAVAILABLE S UNAVAILA BLE [facility] [id number] SP [id number] ELY [id number] 300 ANSI-Not a Secondary Insurance [id number] 00aaafa [id number]-6588-sox9-5636q70tyenw ANSI-Commercial [id number] [id number] ANSI-Medicaid [id number] ANSI-Commercial 3j4521m1-4n2f-8nr7-96s1-85pq3s2502e2 8u1592h6-2m7x-5gn7-98h4-44ob5a8722b0 ANSI-Commercial k6182466-4w3y-6337-h48j-l08ph21u477s v9540624-0v8u-9100-h43l-y77te04s238n ANSI-Not a Secondary Insurance a314bjsb-2695-6y2s-dz9f-b0wcp 43f6p31 t984qksy-5500-6n3k-qe1t-t7oqf45x2o85 ANSI-Commercial 350fzpn9-q647-41q5-z5c1-be930m09g2cm 375rzik9-i049-73o1-e6m2-fl584v36f1of ANSI-Medicaid [id number] [facility] [place] Medicaid [id number] Self [id number] ANSI-Commercial [id number]-ik42-29k2-u83b-[id number] y375840w-gb97-23g5-r51t-2la55a298578 ANSI-Commercial fqcd43j8-k29t-320c-63u7-gk3bw7gm1arg tiaj72p4-r48p-310v-71i5-lz2et0wf9aci ANSI-Not a Secondary Insurance [id number]-[id number] [id number] q683id0m-[id number] ANSI-Medicaid [id number] ANSI-Commercial 597y349s-u1e6-223h-us97-6mo23m59586t 060j581e-b9p5-779t-jb43-3ew45q28896u ANSI-Medicaid [id number] ANSI-Commercial l4238n8a-e110-853z-460h-55c7m35a254i c3656s8y-r432-781w-715t-91q3i68w454m ANSI-Not a Secondary Insurance [id number]-4g1v-4h03-6k14-9izo7 f6z8yz0 re4m886x-6p0n-7z34-4n47-5zjv0s2s1kx0 ANSI-Not a Secondary Insurance 2m42019l-74az-0419-3737-z64en r4na1q8 [id number]-92or-0962-2997-n90nky6fy9l5 ANSI-Commercial 57079da8-8v5s-3yn0-3230-3301832ve2d4 96337av8-2z9p-1iy1-1391-1186471ig0t7 ANSI-Medicaid [id number]-zk75-4iuq-g882-[id number] ANSI-Commercial 2432o481-h116-576e-4c8t-w2084a00s649 8437q808-g051-338j-6k0u-w1881n47e269 [facility] [place] Medicaid [id number] Self [id number] ANSI-Not a Secondary Insurance [id number]24 s6l82or w41gmku9-8i22-2c18-8k35-5hq64z4h29nf ANSI-Medicaid [id number]-ie9s-24e0-utk3-[id number] ANSI-Commercial 000w3k50-3mz6-293u-nz26-6qb646n6fr91 884l2j82-0rz4-201e-fx63-6ot418l9cj01 ANSI-Commercial 4y9o81bx-74q5-28ge-w777-731713274368 7e2c35sm-07o0-17ts-k093-897438379854 ANSI-Medicaid [id number] ANSI-Commercial 3h26xx50-1326-2r3a-g95b-77208595l141 5v40xy60-7941-2d6o-t72c-15145036n162 ANSI-Commercial 64cyd496-49jy-68sp-t5q7-51449hs393e7 07tii030-12dv-42nz-r3n4-24610ac687y1 ANSI-Not a Secondary Insurance 45842y5m-2450-94dm-314v-11454 [id number] 04054w6p-2474-32dw-821f-0151691822m9 ANSI-Not a Secondary Insurance 1jyc65p2-26qy-6nu4-zwh1-m6yvc sv6ud43 2sbw27c3-66fg-9tv0-msv1-q3pipdm6ud71 ANSI-Medicaid [id number] ANSI-Commercial r1r2boe9-5q69-2r52-c28w-7spy5p0e13a1 h6i0vat6-4n56-6z77-z46c-5too6e9t34r1 ANSI-Commercial sc3qc91c-632y-96o9-bi65-ehborl247it0 hf8mn59v-045m-20b5-do42-jcmgnv845oc0 ANSI-Medicaid [id number] ANSI-Commercial 2s71pk84-kkf0-90og-qz96-28sp14203339 5n38tu75-wzf5-52rq-fh82-67ef64935211 ANSI-Commercial h57zo8mx-tsme-6m5e-9rc5-zu6udjz560p5 j68rm4gv-bllh-7j1p-7tx0-yw9ckjv367d6 ANSI-Not a Secondary Insurance 5fh32sx2-4hto-6368-d2ow-h09uk c8vf6x7 7do53mo8-8ayh-5771-q9lp-r90aoe5la4t2 ANSI-Commercial 8n6pu04s-bjxc-77d6-a4m9-n0xem95004n1 7x4ag02x-toho-57n1-w2i4-x4kdb86219y5 ANSI-Commercial an920bu8-394x-8b5g-h855-4l5e9v94m0c4 yg463yh9-392c-7p8x-c104-7y2i1q42v4b5 ANSI-Medicaid [id number]-[id number]-[id number] ANSI-Not a Secondary Insurance yl56vb15-f81g-6t0x-p442-7h310 [id number] ka05fx24-h54j-5u3m-m399-3r281043lv45 ANSI-Not a Secondary Insurance 900b0476-g3ob-1rsc-8u7u-1h148 1xoki8o 260z1990-u8xx-1gpv-0u3a-9u6866jstg8s ANSI-Commercial 1o7c6419-150a-24ns-2v19-v05pcl87984t 8x1r3196-424v-52mw-7r41-c81rzp19531j ANSI-Commercial z7x51v0b-6zu2-5694-546h-k966l032f7q1 i7n82q3m-8lx5-0590-919u-h215s565m2h4 ANSI-Medicaid [id number] ANSI-Not a Secondary Insurance [id number]-72e8-05f5-9561-s38j6 [id number] 460k2zso-97z6-38m9-4877-x92m91514421 ANSI-Commercial zzt2638t-90fu-5584-y759-l75i68il509d crt9550k-73vz-9631-w165-o66f68ud763j ANSI-Commercial 79v3303z-787o-854i-6103-28j8867405u7 82y1018j-543q-048q-2625-25s5426338z6 ANSI-Medicaid [id number]-[id number] ANSI-Not a Secondary Insurance 67j6nrxq-439p-5z14-har9-53s9c 56beabb 25i5xvgr-383r-8y81-qic9-36i3z62zouzp ANSI-Commercial 1sg4150a-2a08-58w6-1ww3-odya0687r307 0ib5468a-4n52-37u9-1md4-neuo7805t579 ANSI-Commercial [id number] ANSI-Medicaid [id number] MEDICAID [id number] SP [id number] [facility] [place] Medicaid [id number] Self [id number] SELF PAY ONLY [facility]VAILABLE [facility] O [id number] S [id number] [employer] COMMUNITY PLAN MCDHMO [id number] SP [id number] SELF PAY UNAVAILABLE SP UNAVAILA BLE BLUE CROSS AZAR PLAN [id number] SP [id number] MEDICAID [id number] SP [id number] [employer] [place] WATN 306/806 [id number] [place] [id number] PROCLAIM [facility]N [facility] [id number] [place] [id number] P UNAVAILABLE UNAVAILA BLE EXCELLUS BCBS P [id number] S [id number] [facility] [id number] SP [id number] Problems, Conditions, and Diagnoses No Information Surgeries/Procedures Procedure Description Date Indications Data Source(s) OFFICE OUTPATIENT VISIT 15 MINUTES 06/03/2021 12:00:00 AM EDT [facility] ([facility]) UPPER NDSC BIOPSY SINGLE/MULTIPLE 01/13/2021 12:00:00 AM EDT [facility] ([facility]) OFFICE OUTPATIENT VISIT 15 MINUTES 12/31/2020 12:00:00 AM EDT [facility] ([facility]) Results ID Date Data Source [id number] 07/15/2021 12:00:00 AM EDT [facility] Name Value Range Interpretation Code Description Data Kathy rce(s) Supporting Document(s) SARS-CoV2 Rapid Antigen Negative [facility] This lab was ordered by [facility] and reported by [facility]. ID Date Data Source [id number] 05/30/2021 11:40:00 AM EDT [facility] Name Value Range Interpretation Code Description Data Kathy rce(s) Supporting Document(s) SARS-CoV-2 (COVID-19) RNA [Presence] in Respiratory specimen by YADY with probe detection Not Detected [facility] This lab was ordered by [facility] and reported by [employer]. ID Date Data Source [id number] 01/13/2021 11:22:00 AM EDT [facility] ([facility]) Name Value Range Interpretation Code Description Data Kathy rce(s) Supporting Document(s) Surgical pathology study Laboratory test result [facility] ([facility]) <content>FINAL DIAGNOSIS</content>
< content></content>
<content>A - [...] 01/14/2021 1408</content>
<content></content> ID Date Data Source [id number] 01/08/2021 11:50:00 AM EDT [facility] Name Value Range Interpretation Code Description Data Kathy rce(s) Supporting Document(s) SARS-CoV-2 (COVID-19) RNA [Presence] in Respiratory specimen by YADY with probe detection Not Detected [facility] This lab was ordered by [facility] and reported by [employer]. Procedure Social History No Information Vital Signs [...] mm[Hg] 124 mm[Hg] M [facility] ([facility]) Heart rate 78 /min 78 /min [facility]) Body mass index (BMI) [Ratio] 28.7 kg/m2 28.7 k g/m2 [facility] ([facility]) Diastolic blood pressure 97 mm[Hg] 97 mm[Hg] [facility] ([facility]) Body weight 90.720 kg 90.720 kg [facility]) Body temperature 98.1 [degF] 98.1 [degF] [facility] ([facility])
--- NOTE | 2021-07-27 13:03 | REP ---
INDICATION: CASEY x 12d, dizziness. COMPARISON: CT head without contrast, 04/28/2013. TECHNIQUE: Contiguous 5 mm thick axial projection images were obtained of the head. 2D coronal reconstructions were performed. FINDINGS: There is no evidence of acute intracranial hemorrhage or infarction. There are no abnormal intracranial masses or mass effect. The skull base and calvarium are normal. The visualized extracranial soft tissues are unremarkable. IMPRESSION: Normal CT head without IV contrast. <Electronically signed by Nilesh Martin > 07/27/21 1819
[2021-07-27 13:07] LABS: BASO % 0.4 % (0.0-1.0); EOS # 0.1 10^3/uL (0.0-0.5); EOS % 1.3 % (0.0-3.0); HEMATOCRIT 43.9 % (42.0-52.0); HEMOGLOBIN 14.6 g/dl (13.5-17.5); LYMPH # 1.7 10^3/uL (1.5-5.0); LYMPH % 30.8 % (24.0-44.0); MEAN CORPUSCULAR HGB CONC 33.3 g/dl (32.0-36.5); MEAN CORPUSCULAR VOLUME 87.1 fl (80.0-96.0); MONO # 0.6 10^3/uL (0.0-0.8); MONO % 10.8 % (2.0-8.0); NEUTROPHILS # 3.1 10^3/uL (1.5-8.5); NEUTROPHILS % 56.5 % (36.0-66.0); PLATELET COUNT, AUTOMATED 234 10^3/uL (150-450); RED BLOOD COUNT 5.04 10^6/uL (4.30-6.10); WHITE BLOOD COUNT 5.4 10^3/uL (4.0-10.0)
[2021-07-27 13:25] LABS: ERYTHROCYTE SEDIMENTATION RATE 3 mm/hr (0-15)
[2021-07-27 13:32] LABS: BLOOD UREA NITROGEN 10 MG/DL (7-18); CALCIUM LEVEL 8.7 MG/DL (8.5-10.1); CARBON DIOXIDE LEVEL 32 MEQ/L (21-32); CHLORIDE LEVEL 107 MEQ/L (98-107); CREATININE FOR GFR 0.92 MG/DL (0.70-1.30); GLOMERULAR FILTRATION RATE > 60.0 (>60); GLUCOSE, FASTING 85 MG/DL (70-100); MAGNESIUM LEVEL 2.1 MG/DL (1.8-2.4); SODIUM LEVEL 140 MEQ/L (136-145)
[2021-07-27] MEDS ORDERED: FLON1SPR NARES (14:00)
[2021-07-27] MEDS ORDERED: PSEU120T19 PO (14:00)
[2021-07-27] MEDS ORDERED: ONDA4TAB6 PO (14:00)
[2021-07-27 14:14] VITALS: BP 114/63
== END 2021-07-27 14:20 | disposition home or self-care (01) ==
LOC: M ED 10:51
DX: R51.9 Headache, unspecified (principal); G47.33 Obstructive sleep apnea (adult) (pediatric); Z79.899 Other long term (current) drug therapy
CPT/HCPCS: 70450; 80048; 83735; 85025; 85652; 96374; 96375; 99284; J1200; J1885; J2765

== ENCOUNTER 2021-08-09 21:46 | Emergency (ER) | payer OTHER ==
[~2021-08-09] VITALS: Ht 180.3 cm; Wt 85.0 kg
[~2021-08-09 21:46] MED LIST changes: +ONDA4TAB6 PO; +PSEU120T19 PO
--- OUTSIDE RECORDS SUMMARY | 2021-08-09 21:51 | CCD ---
Author Author [facility] Organization [facility] Address Unknown Phone Unavailable Care Team Providers Care Plan Rep Name Role Phone SujitJohnterri Unavailable PROBLEMS Type Condition ICD9-CM Code SEL66-NP Code Onset Dates Condition S tatus W/U Status Risk SNOMED Code Notes Problem Anxiety F41.9 Active confirmed 21946557 Problem Other tobacco product nicotine dependence, uncomplicated F17.290 Active confirmed 74201197 Problem Obstructive sleep apnea G47.33 Active confirmed 38480815 Problem Irritable bowel syndrome with both constipation and diarrh ea K58.2 Active confirmed 02099649 Problem Diverticulosis large intestine w/o perforation o r abscess w/bleeding K57.31 Active confirmed 5029520 Problem Gastroesophageal reflux disease without esophagitis K21.9 Active confirmed 138008674 Problem Vitamin D deficiency E55.9 Active confirmed 73270917 ALLERGIES Allergen (clinical drug ingredient) Drug/Non Drug Allergy do cumented on EMR Reaction Allergy Type Onset Date Status sertraline Sertraline HCl([facility] Code:[address]-58) Panic Attack Drug A llergy Active venlafaxine Venlafaxine HCl([facility] Code:[address]-53) Panic Attack Drug Allergy Active ENCOUNTERS from 1995 to 2021-07-30 Encounter Location Date Provider Diagnosis [facility] Resident [address] [phone] [place] [address] Jul, Pro Beckett IMMUNIZATIONS Vaccine Route Administration Date Status Rocephin [...] Education Language: Question Answer Notes Languages spoken: Romanian Confucianist: Question Answer Notes Confucianist 08 Voodoo No mormonism beliefs that would impact health [...] Information RESULTS No Results REASON FOR VISIT Appointment MEDICAL (GENERAL) HISTORY Type Description Date Medical [...] day(s) 2018 Next Appt Details Provider Name:Pro Beckett, 2021-08-15 0 8:30:00 AM, [address] , , [place], [address], Insurance Providers Payer Name Payer Address Payer Phone Insured Name Patient Relati onship to Insured Coverage Start Date Coverage End Date [facility] [address] [facility] [id number] SKIP MICHAELS self
--- OUTSIDE RECORDS SUMMARY | 2021-08-09 21:51 | CCD ---
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 If you continue you may have access to information: Regarding HIV / AIDS; Provided by facilities licensed or operated by the [facility] Office of Mental Health; or Provided by the [facility] Office for People With Developmental Disabilities. If such information is present, then the following [facility] mandated warning applies: This information has [...] law may result in a fine or longterm sentence or both. A general authorization for the release of medical or other information is NOT sufficient authorization for further disc losure. Family History Family Member Name Family Member Gender Family Member Status Date o f Status Description Data Source(s) Unknown Unknown Problem MEDENT ([facility]) maternal grandmother dx in her 40s Encounters Encounter Providers Location Date Indications Data Source(s ) Unknown [address] [facility] [address] 07/25/2021 12:00:00 AM EDT eCW1 (Critical access hospital) Unknown [address] [facility] [address] 07/15/2021 12:00:00 AM EDT eCW1 (Critical access hospital) Outpatient Attender: Yoseph Gaviria MD Main Office 06/03/2021 03:00:00 PM EDT [facility] ([facility]) Unknown [address] [facility] [address] 05/30/2021 12:00:00 AM EDT eCW1 (Critical access hospital) Outpatient Attender: Yoseph Gaviria MD Main Office 12/31/2020 03:00:00 PM EDT MEDENT ([facility]) Medications Medication Brand Name Start Date Product Form Dose Route Admi nistrative Instructions Pharmacy Instructions Status Indications Reaction Description Data Source(s) Aluminum Hydroxide 160 MG / magnesium carbonate 105 MG Chewable Tablet Gaviscon Extra Strength 06/03/2021 12:00:00 AM EDT ORAL active MEDENT ([facility]) Insurance Providers Payer name Policy type / Coverage type Policy ID Covered constitution party ID Covered constitution party's relationship to serna Policy Serna Plan Information ELY [id number] 300 [facility] [id number] Managed Care - [facility] P UNAVAILABLE S UNAVAILABLE Medicaid S UNAVAILABLE S UNAVAILA BLE [facility] [id number] SP [id number] ELY [id number] 300 ANSI-Not a Secondary Insurance [id number] 00aaafa [id number]-[id number] ANSI-Commercial [id number] [id number] ANSI-Medicaid [id number] ANSI-Commercial [id number]-[id number] 2l5620c9-2w2i-1lh6-94h8-65jr9f8677b6 ANSI-Commercial [id number]-3396-y52e-o98tv83p364h [id number]-9887-t98f-c46mc19m292u ANSI-Not a Secondary Insurance [id number]-oc4s-s8pob [id number]-1573-6i1u-ph8q-o2nsk90f7s31 ANSI-Commercial 791uaoa9-x710-26v7-r3c3-xt858d55c3sa 440jnhd8-q683-04k2-x2t8-jq445c35g2zj ANSI-Medicaid [id number] [facility] [place] Medicaid [id number] [facility] [id number] ANSI-Commercial [id number]-su61-06x3-g85x-[id number] [id number]-qt62-90m9-q81f-[id number] ANSI-Commercial odvx18y0-x80a-603o-68u5-mr9zo5zp3lqz irkm26k8-v78h-859d-59y2-zv1kz1da0zsf ANSI-Not a Secondary Insurance [id number]-[id number] [id number] [id number]-[id number] ANSI-Medicaid [id number] ANSI-Commercial 921e072u-w2j3-100k-ul23-8hr21g71488c 630j053m-u0i6-838p-jp11-2ql92v55049g ANSI-Medicaid [id number] ANSI-Commercial i9766z7p-n932-932v-326c-10z1v21t250p v0951d1u-o923-930l-988d-83u0f42w746i ANSI-Not a Secondary Insurance lj1g465j-5d8s-5d39-5m53-2kgp7 t8v0mm9 dy1c436j-7t9k-8y98-3g54-6jcx9n3d7pp6 ANSI-Not a Secondary Insurance [id number]-22uw-0192-5799-r28tb j6pl0l5 0m72758f-15pd-4375-2150-y92cdg3oz7l2 ANSI-Commercial 68716pp2-2q1c-9yh9-6152-1287919ik4b8 56251uu5-7b1x-5xh1-6432-0704292qg2e5 ANSI-Medicaid [id number] ANSI-Commercial 3206t566-l583-912j-7v9k-x9631m47w903 5526m275-u656-461k-8t5w-l0856s58h655 [facility] [place] Medicaid [id number] Self [id number] ANSI-Not a Secondary Insurance [id number] [id number] s59sfem9-2j92-7c62-2h54-7dk92n3j86hl ANSI-Medicaid [id number]-[id number] ANSI-Commercial 019j1e71-0rj1-948u-ae90-3lw609h2we07 811s7y33-4hc3-233j-et22-9vc646j1js59 ANSI-Commercial 3q5x93wj-23s6-58et-q528-502916221923 4p9t15ki-50g0-49jq-g180-353996569021 ANSI-Medicaid [id number] ANSI-Commercial 9w94iy04-8797-9h7n-r99p-57687721v868 1v30ls62-7050-2e1o-c43a-93286787c080 ANSI-Commercial 61koz287-09si-63oh-r6o5-87143kr659d1 04uhf174-53ld-01vx-a7y0-64910dd911g6 ANSI-Not a Secondary Insurance [id number]-2083-66jt-544m-17439 [id number] 08812s2z-7082-14ru-957n-3784614759d2 ANSI-Not a Secondary Insurance 7gvd66b6-99ad-2cb4-gkr0-z7jah kg4sz08 4wnq41r9-66rk-5ot9-ols9-u7wdlha6vn40 ANSI-Medicaid [id number] ANSI-Commercial e6a0uiq0-8y19-3x93-u05y-4ivb2b4q73x7 a4a1hou2-8j89-0o87-x31l-1vae4q3k92b4 ANSI-Commercial dd7si08i-455o-30f0-ut48-scrxug468xi2 uz4ze52p-305h-46t9-yj39-yljunm905pj0 ANSI-Medicaid [id number] ANSI-Commercial 8t29zj50-agb5-63zh-xj86-57kt14552791 9t47iz03-rbq5-54aq-pi68-07cv79623629 ANSI-Commercial r58bj1gq-nozr-1r2u-3ud8-ce3bnhh153j6 g03tw9il-cehl-6o6x-7en0-hk6ngfk704p7 ANSI-Not a Secondary Insurance 4wc83ab4-7otw-5894-t7xp-b74pw v3yt6d6 3jc70bn7-6dsy-0126-z0jh-f29rvm5yd7i0 ANSI-Commercial 0r0zb99w-erow-18u9-d7h5-y0zoo12090d1 5x2by80m-ordt-86f9-a4c2-i5ssi86916d1 ANSI-Commercial xp830qg1-019b-3m8n-o118-7v9l7l81d0j2 tk804vx9-523d-5e0s-x152-5w4l6c36t3w6 ANSI-Medicaid [id number] ANSI-Not a Secondary Insurance qm02vr47-b10m-2e6l-l085-2i980 843wa15 jh81qi52-g53y-0z3k-m362-5r029630kp80 ANSI-Not a Secondary Insurance 502v6676-h9kz-5iym-2a4t-9a014 2uosy1o 970y9414-f8zp-1omb-5v9z-6d3565nrgl0b ANSI-Commercial 1u6t6495-579y-05rp-8e70-h85viz74441w 6i0w4485-981e-12fy-1j93-m77pxs06110b ANSI-Commercial r0c81g9r-6by5-9746-015v-f807j484l0m3 r2q96j2b-0sw1-8436-248z-j550d024m1x0 ANSI-Medicaid [id number] ANSI-Not a Secondary Insurance 550b7hzq-80s8-46u7-7521-k64c4 [id number] 465p0umm-94w7-82h7-0645-d10x37838729 ANSI-Commercial jsq2050k-46bs-4187-n409-y14p59gq301m rko3167f-15tb-6916-f653-q40v37hi433m ANSI-Commercial 55q7831y-015w-328u-9138-37w5612941q1 68r4342c-319y-507v-2040-26r0752088r1 ANSI-Medicaid [id number] ANSI-Not a Secondary Insurance 80w2nrss-984b-0e72-xir3-13k2z 56beabb 76z6dafk-902z-2v23-vrd8-07t6r83cylhe ANSI-Commercial 3mm8087i-0z41-70p6-8qs2-yxoe0070p322 1pg6541b-0l01-75k7-9dd8-znco3325m865 ANSI-Commercial t7k75eq5-8u3w-6380-305f-3976zbhit092 s3t73zn8-2g3j-2768-944n-1078jqxpz124 ANSI-Medicaid [id number] MEDICAID [id number] SP [id number] [facility] Medicaid [id number] Self [id number] SELF PAY ONLY UNAVAILABLE [facility] O [id number] S [id number] [employer] COMMUNITY PLAN MCDHMO [id number] SP [id number] SELF PAY UNAVAILABLE SP UNAVAILA BLE BLUE CROSS AZAR PLAN [id number] SP [id number] MEDICAID [id number] SP [id number] [place] 306/806 [id number] [place] [id number] [facility] [id number] [place] [id number] P UNAVAILABLE UNAVAILA BLE EXCELLUS BCBS P [id number] S [id number] [id number] MVP [facility] [id number] SP [id number] Problems, Conditions, and Diagnoses No Information Surgeries/Procedures Procedure Description Date Indications Data Source(s) OFFICE OUTPATIENT VISIT 15 MINUTES 06/03/2021 12:00:00 AM EDT MED[facility] ([facility]) UPPER NDSC BIOPSY SINGLE/MULTIPLE 01/13/2021 12:00:00 AM EDT MEDENT ([facility]) OFFICE OUTPATIENT VISIT 15 MINUTES 12/31/2020 12:00:00 AM EDT MEDENT ([facility]) Results ID Date Data Source [id number] 07/15/2021 12:00:00 AM EDT [facility] Name Value Range Interpretation Code Description Data Kathy rce(s) Supporting Document(s) SARS-CoV2 Rapid Antigen Negative [facility] This lab was ordered by [facility] and reported by [facility]. ID Date Data Source [id number] 05/30/2021 11:40:00 AM EDT [facility] Name Value Range Interpretation Code Description Data Kathy rce(s) Supporting Document(s) SARS-CoV-2 (COVID-19) RNA [Presence] in Respiratory specimen by YADY with probe detection Not Detected [facility] This lab was ordered by [facility] and reported by [facility]. ID Date Data Source [id number] 01/13/2021 11:22:00 AM EDT MEDENT ([facility]) Name Value Range Interpretation Code Description Data Kathy rce(s) Supporting Document(s) Surgical pathology study Laboratory test result MEDENT ([facility]) <content>FINAL DIAGNOSIS</content>
< content></content>
<content>A - Stomach, [...]
<content>CLINICAL DIAGNOSIS</content>
<content></content>
<content>Chronic reflux</content>
<content>01/14/2021 - 22</content>
<content></content>
<content>GROSS DIAGNOSIS</content>
<content></content>
<content>A - Received [...] 721</content>
<content></content>
<content>Signed DARWIN BELL MD 01/14/2021 1402</content>
<content></content> ID Date Data Source [id number] 01/08/2021 11:50:00 AM EDT [facility] Name Value Range Interpretation Code Description Data Kathy rce(s) Supporting Document(s) SARS-CoV-2 (COVID-19) RNA [Presence] in Respiratory specimen by YADY with probe detection Not Detected [facility] This lab was ordered by [facility] and reported by [facility]. Procedure Social History No Information Vital Signs ID Date Data Source UNK Name Value Range Interpretation Code Description Data Source(s) Body height 70 [in_i] 70 [in_i] MEDENT ([facility]) 5'10" Body weight 186.00 [lb_av] 186.00 [lb_av] MEDEN T ([facility]) Systolic blood pressure 117 mm[Hg] 117 mm[Hg] M EDENT ([facility]) Diastolic blood pressure 78 mm[Hg] 78 mm[Hg] [facility] ([facility]) Heart rate 86 /min 86 /min [facility] ([facility]) Body mass index (BMI) [Ratio] 26.7 kg/m2 26.7 k g/m2 MED[facility] ([facility]) Body weight 84.370 kg 84.370 kg [facility] ([facility]) Body temperature 97.5 [degF] 97.5 [degF] [facility] ([facility]) Body height 70 [in_i] 70 [in_i] [facility] ([facility]) 5'10" Body weight 200.00 [lb_av] 200.00 [lb_av] MEDEN T ([facility]) Heart rate 78 /min 78 /min [facility] ([facility]) Systolic blood pressure 124 mm[Hg] 124 mm[Hg] M EDENT ([facility]) Diastolic blood pressure 97 mm[Hg] 97 mm[Hg] MED[facility] ([facility]) Body mass index (BMI) [Ratio] 28.7 kg/m2 28.7 k g/m2 [facility] ([facility]) Body weight 90.720 kg 90.720 kg MEDENT ([facility]) Body temperature 98.1 [degF] 98.1 [degF] MEDENT ([facility])
[2021-08-09 23:47] VITALS: BP 127/76
[2021-08-10] MEDS ORDERED: AUGMENTIN 500 MG TAB PO ONE (01:20)
[2021-08-10] MEDS ORDERED: AUGM500T34 PO (01:26)
--- OUTSIDE RECORDS SUMMARY | 2021-08-10 01:32 | CCD ---
Author Author [facility] Organization [facility] Address Unknown Phone Unavailable Care Team Providers Care Railroad Police Officer Name Role Phone Eileen Gaviria MD [...] is protected by Article 27-F of the [facility] Public Health law. If you continue you may have access to information: Regarding HIV / AIDS; Provided by facilities licensed or operated by the [facility] Office of Mental Health; or Provided by the [facility] Office for People With Developmental Disabilities. If such information is present, then the following [facility] mandated warning applies: This information has been [...] law may result in a fine or usp sentence or both. A general authorization for the release of medical or other information is NOT sufficient authorization for further disc losure. Family History Family Member Name Family Member Gender Family Member Status Date o f Status Description Data Source(s) Unknown Unknown Problem MEDENT ([facility]) maternal grandmother dx in her 40s Encounters Encounter Providers Location Date Indications Data Source(s ) Unknown [address] [facility] [place] [address] 07/25/2021 12:00:00 AM EDT eCW1 ([facility]) Unknown [address] [facility] [place] [address] 07/15/2021 12:00:00 AM EDT eCW1 ([facility]) Outpatient Attender: Yoseph Gaviria MD Main Office 06/03/2021 03:00:00 PM EDT [facility] ([facility]) Unknown [address] [facility] [place] [address] 05/30/2021 12:00:00 AM EDT eCW1 ([facility]) Outpatient Attender: Yoseph Gaviria MD Main Office [...] type / Coverage type Policy ID Covered alliance party ID Covered alliance party's relationship to serna Policy Serna Plan Information ELY [id number] [address] [facility] [id number] Managed Care - [facility] P UNAVAILABLE S UNAVAILABLE Medicaid S UNAVAILABLE S UNAVAILA BLE [facility] [id number] SP [id number] ELY [id number] 300 ANSI-Not a Secondary Insurance [id number] 00aaafa [id number]-[id number] ANSI-Commercial [id number] [id number] ANSI-Medicaid [id number] ANSI-Commercial [id number]-[id number] 7b2593r3-3m4b-4xg8-89z0-60zy1r2220e3 ANSI-Commercial [id number]-6077-e53r-f91je02v172v g0498274-0q6g-2565-q23e-u08hd77r526s ANSI-Not a Secondary Insurance [id number]-nd8z-p5mop [id number] x534kcjb-2833-1e4p-js5h-m0rdg41o6o51 ANSI-Commercial 943uuwq2-v496-54r2-w1k4-nk940a73l6nu 613svhz8-y660-75x6-t4x2-vg452o96t1rk ANSI-Medicaid [id number] [facility] [place] Medicaid [id number] [facility] [id number] ANSI-Commercial [id number]-on70-87g6-j41i-[id number] h301851m-uu46-57f9-i50c-0ur70n194617 ANSI-Commercial pgbu33m7-i76w-429r-75c8-ju5bg4af6brq gosu74i2-f93b-546v-50k7-sk3sy5be7zww ANSI-Not a Secondary Insurance [id number] [id number]-[id number] ANSI-Medicaid [id number] ANSI-Commercial 503p165x-u1i1-756p-lq12-1me21u55399l 291z092c-e0c1-379p-ss68-6nk17e73794p ANSI-Medicaid [id number] ANSI-Commercial u8195x4x-h424-646t-392d-03u1u20l059d n5112p9g-r229-471d-630j-69r4z34c695l ANSI-Not a Secondary Insurance [id number]-3z8v-9v50-6s16-8mvi9 u1j5oa7 uk0i415z-6g3a-7a26-5e73-2asv9j1z0fl2 ANSI-Not a Secondary Insurance [id number]-00cd-9203-8751-x28qp c1qj9x0 9b57240k-92cr-3268-2879-l23fjh1fz7u3 ANSI-Commercial 21166tc2-2t3m-3no8-6061-1483292om8p3 74312ks6-3l8o-3ri2-0016-4106469sc4i4 ANSI-Medicaid [id number] ANSI-Commercial 1411i875-b450-028m-6j4p-k1128p88u786 1839d775-j631-420y-5z7w-c8700l77y138 [facility] [place] Medicaid [id number] Self [id number] ANSI-Not a Secondary Insurance g02rgta5-6a85-1h57-5m11-9bd75 f1r96ff f47prug2-2a62-8w59-7a03-9ew21n7h03xb ANSI-Medicaid [id number] evh1m24r-zr8k-57o2-jhf0-[id number] ANSI-Commercial 103u3r30-7ct3-595v-mx08-8df697k4cd77 730o4a74-0wb4-958c-sd95-6ou224a3fh84 ANSI-Commercial 7q8x48ab-27q1-43bm-[id number] 8i0s28jr-50y0-37yw-c761-157868126434 ANSI-Medicaid [id number] ANSI-Commercial 7l46qn77-8640-8r0h-s94h-74806419v637 2s32bo40-2632-0d3t-f28c-99106656x662 ANSI-Commercial 66pld098-17rw-99kg-k1r7-56762im507p1 16ngn686-49ha-15qm-t7s6-12967dy208g2 ANSI-Not a Secondary Insurance [id number]-0368-46mq-166e-90237 [id number] 11271e0j-6069-34ig-998w-2494122338v6 ANSI-Not a Secondary Insurance 8owo66g1-70hg-5ak2-ayt1-y4vle rj4ne19 7evr80e5-42jk-4yi6-qut5-g7icqmq6co09 ANSI-Medicaid [id number] ANSI-Commercial l4c8yfm6-1e77-5p47-c75z-1ikf8x0l76t2 a4p7mvs0-7j21-2t31-s83t-7fvx3e6s53n9 ANSI-Commercial xk2lq94w-187u-81m0-mr94-yfvoyj150oi3 pn0bh12p-006p-39c2-xl39-ghvaes100of7 ANSI-Medicaid [id number] ANSI-Commercial 0k95gp98-utw1-16eh-[id number] 0r64hq84-ptq0-16zh-vw17-48hi47678081 ANSI-Commercial s88mh3cr-nelt-0s8z-5wn8-ft5dbcc945b5 i71wk8aq-gczr-9p5z-7ys0-he3aoem997e4 ANSI-Not a Secondary Insurance 2yj62uo9-6siu-7778-b0pq-h40jm c8fn3v9 9xm47ej9-6whg-2937-d4kr-k50xfa2er8r6 ANSI-Commercial 8i9qg70u-wpci-89r1-z0x1-y6jpf42424v0 3c7od95i-xczg-53a2-v5s1-r8ncq85679y1 ANSI-Commercial rq165wv3-768q-9k9f-h987-2u8f1m35x6i4 xr820qd6-054b-3o0d-z413-1g6n2w49v2q8 ANSI-Medicaid [id number]-[id number]-to16-[id number] ANSI-Not a Secondary Insurance [id number]-g15g-1p1r-h803-8i215 532tw94 mu68lc81-v03u-0c7t-i538-5n598155ab58 ANSI-Not a Secondary Insurance 558h1408-a8oq-5nku-6q6n-3c191 6yhej8a 166k3850-u9ib-7urb-6w9d-2z3451nmad8s ANSI-Commercial 9g3b3569-902j-05ah-7z15-w52jzs55549a [id number] ANSI-Commercial [id number] ANSI-Medicaid [id number] ANSI-Not a Secondary Insurance [id number] ANSI-Commercial [id number] ANSI-Commercial [id number] ANSI-Medicaid [id number] ANSI-Not a Secondary Insurance [id number] ANSI-Commercial [id number] ANSI-Commercial [id number] ANSI-Medicaid [id number] MEDICAID [id number] SP [id number] [facility] Medicaid [id number] Self [id number] SELF PAY ONLY [facility]ILABLE [facility] O [id number] S [id number] [employer] COMMUNITY PLAN MCDHMO [id number] SP [id number] SELF PAY UNAVAILABLE SP UNAVAILA BLE BLUE CROSS AZAR PLAN [id number] SP [id number] MEDICAID [id number] SP [id number] [employer] [place] 306/806 [id number] [place] [id number] PROCLAIM [facility] [id number] [place] [id number] P UNAVAILABLE UNAVAILA BLE EXCELLUS BCBS P [id number] S [id number] [id number] [facility] [id number] SP [id number] Problems, Conditions, and Diagnoses No Information Surgeries/Procedures Procedure Description Date Indications Data Source(s) OFFICE OUTPATIENT VISIT 15 MINUTES 06/03/2021 12:00:00 AM EDT [facility] ([facility]) UPPER NDSC BIOPSY SINGLE/MULTIPLE 01/13/2021 12:00:00 AM EDT [facility] ([facility]) OFFICE OUTPATIENT VISIT 15 MINUTES 12/31/2020 12:00:00 AM EDT [facility] ([facility]) Results ID Date Data Source [id number] 07/15/2021 12:00:00 AM EDT [facility] Name Value Range Interpretation Code Description Data Kathy rce(s) Supporting Document(s) SARS-CoV2 Rapid Antigen Negative [facility] This lab was ordered by [facility] and reported by [facility]. ID Date Data Source [id number] 05/30/2021 11:40:00 AM EDT [facility] Name Value Range Interpretation Code Description Data Kathy rce(s) Supporting Document(s) SARS-CoV-2 (COVID-19) RNA [Presence] in Respiratory specimen by YADY with probe detection Not Detected [facility] This lab was ordered by [facility] and reported by [facility]. ID Date Data Source [id number] 01/13/2021 11:22:00 AM EDT [facility] ([facility]) Name Value Range Interpretation Code Description Data Kathy rce(s) Supporting Document(s) Surgical pathology study Laboratory test result [facility] ([facility]) <content>FINAL DIAGNOSIS</content>
< content></content>
<content>A [...] 721</content>
<content></content>
<content>Signed DARWIN BELL MD 01/14/2021 5001</content>
<content></content> ID Date Data Source [id number] 01/08/2021 11:50:00 AM EDT [facility] Name Value Range Interpretation Code Description Data Kathy rce(s) Supporting Document(s) SARS-CoV-2 (COVID-19) RNA [Presence] in Respiratory specimen by YADY with probe detection Not Detected [facility] This lab was ordered by [facility] and reported by [facility]. Procedure Social History No Information Vital Signs ID Date Data Source UNK Name Value Range Interpretation Code Description Data Source(s) Body height 70 [in_i] 70 [in_i] [facility] 5[facility]10" Body weight 186.00 [lb_av] 186.00 [lb_av] [facility] ([facility]) Diastolic blood pressure 78 mm[Hg] 78 mm[Hg] [facility] ([facility]) Heart rate 86 /min 86 /min [facility]) Body mass index (BMI) [Ratio] 26.7 kg/m2 26.7 k g/m2 [facility] ([facility]) Systolic blood pressure 117 mm[Hg] 117 mm[Hg] M [facility] ([facility]) Body weight 84.370 kg 84.370 kg [facility] ([facility]) Body temperature 97.5 [degF] 97.5 [degF] [facility] ([facility]) Heart rate 78 /min 78 /min [facility] Body temperature 98.1 [degF] 98.1 [degF] [facility] ([facility]) Body mass index (BMI) [Ratio] 28.7 kg/m2 28.7 k g/m2 [facility] ([facility]) Body weight 90.720 kg 90.720 kg [facility] ([facility]) Body height 70 [in_i] 70 [in_i] [facility] 5'10" Body weight 200.00 [lb_av] 200.00 [lb_av] [facility] T ([facility]) Systolic blood pressure 124 mm[Hg] 124 mm[Hg] M [facility] ([facility]) Diastolic blood pressure 97 mm[Hg] 97 mm[Hg] [facility] ([facility])
== END 2021-08-10 02:21 | disposition home or self-care (01) ==
LOC: M ED 21:46
DX: J02.9 Acute pharyngitis, unspecified (principal); K02.9 Dental caries, unspecified; F33.9 Major depressive disorder, recurrent, unspecified; F41.9 Anxiety disorder, unspecified; K21.9 Gastro-esophageal reflux disease without esophagitis; K58.9 Irritable bowel syndrome, unspecified; Z79.899 Other long term (current) drug therapy

== ENCOUNTER → 2022-05-19 | Outpatient (CLI) | payer OTHER ==
[~2022-05-19] MED LIST changes: +AUGM500T34 PO
[2022-05-19 15:22] LABS: BASO % 0.5 % (0.0-1.0); EOS # 0.1 10^3/uL (0.0-0.5); EOS % 1.8 % (0.0-3.0); HEMATOCRIT 44.1 % (42.0-52.0); HEMOGLOBIN 14.1 g/dl (13.5-17.5); LYMPH # 1.7 10^3/uL (1.5-5.0); LYMPH % 26.9 % (24.0-44.0); MEAN CORPUSCULAR HEMOGLOBIN 28.3 pg (27.0-33.0); MEAN CORPUSCULAR VOLUME 88.4 fl (80.0-96.0); MONO # 0.5 10^3/uL (0.0-0.8); MONO % 8.3 % (2.0-8.0); NEUTROPHILS # 3.9 10^3/uL (1.5-8.5); NEUTROPHILS % 62.3 % (36.0-66.0); PLATELET COUNT, AUTOMATED 254 10^3/uL (150-450); RED BLOOD COUNT 4.99 10^6/uL (4.30-6.10); WHITE BLOOD COUNT 6.2 10^3/uL (4.0-10.0)
[2022-05-19 15:48] LABS: ALBUMIN 4.4 GM/DL (3.2-5.2); ALT/SGPT 18 U/L (12-78); BILIRUBIN,TOTAL 0.3 MG/DL (0.2-1.0); BLOOD UREA NITROGEN 13 MG/DL (7-18); CALCIUM LEVEL 9.5 MG/DL (8.5-10.1); CARBON DIOXIDE LEVEL 28 MEQ/L (21-32); CHLORIDE LEVEL 106 MEQ/L (98-107); CREATININE FOR GFR 0.73 MG/DL (0.70-1.30); GLOMERULAR FILTRATION RATE > 60.0 (>60); GLUCOSE, FASTING 88 MG/DL (70-100); POTASSIUM SERUM 4.3 MEQ/L (3.5-5.1); RHEUMATOID FACTOR QUANT < 10.0 IU/ML (<15.0); SODIUM LEVEL 137 MEQ/L (136-145); TOTAL PROTEIN 7.5 GM/DL (6.4-8.2)
[2022-05-19 15:56] LABS: ERYTHROCYTE SEDIMENTATION RATE 4 mm/hr (0-15)
[2022-05-19 16:14] LABS: HEPATITIS B SURFACE ANTIBODY NEGATIVE (POSITIVE); TOTAL 25(OH) VITAMIN D 26.1 NG/ML (30.0-100.0)
[2022-05-19 16:25] LABS: HEPATITIS B SURFACE ANTIGEN NEGATIVE (NEGATIVE)
[2022-05-19 16:53] LABS: HEPATITIS B CORE ANTIBODY IGM NEGATIVE (NEGATIVE)
== END ==
LOC: M LAB 14:11
PROVIDERS: ATTEND Nurse Practitioner Family
DX: M79.7 Fibromyalgia (principal)

== ENCOUNTER → 2023-09-01 | Outpatient (CLI) | payer OTHER ==
[~2023-09-01] MED LIST changes: +MECL-209 PO; -MECL1TAB31 PO
[2023-09-01 17:01] LABS: BASO % 0.6 % (0.0-1.0); EOS # 0.1 10^3/uL (0.0-0.5); EOS % 1.5 % (0.0-3.0); HEMATOCRIT 46.4 % (42.0-52.0); HEMOGLOBIN 15.5 g/dl (13.5-17.5); LYMPH # 1.4 10^3/uL (1.5-5.0); LYMPH % 30.1 % (24.0-44.0); MEAN CORPUSCULAR HGB CONC 33.4 g/dl (32.0-36.5); MEAN CORPUSCULAR VOLUME 86.9 fl (80.0-96.0); MONO # 0.5 10^3/uL (0.0-0.8); MONO % 9.6 % (2.0-8.0); NEUTROPHILS # 2.8 10^3/uL (1.5-8.5); PLATELET COUNT, AUTOMATED 253 10^3/uL (150-450); RED BLOOD COUNT 5.34 10^6/uL (4.30-6.10); WHITE BLOOD COUNT 4.8 10^3/uL (4.0-10.0)
[2023-09-01 17:21] LABS: HEMOGLOBIN A1c 4.9 % (4.0-6.0)
[2023-09-01 17:29] LABS: ALBUMIN 4.3 G/DL (3.2-5.2); ALKALINE PHOSPHATASE 49 U/L (46-116); ALT/SGPT 24 U/L (7.0-40); AST/SGOT 15 U/L (<34); BILIRUBIN,TOTAL 0.5 MG/DL (0.3-1.2); BLOOD UREA NITROGEN 14 MG/DL (9-23); CALCIUM LEVEL 9.3 MG/DL (8.5-10.1); CARBON DIOXIDE LEVEL 31 MMOL/L (20-31); CHLORIDE LEVEL 105 MMOL/L (98-107); CREATININE FOR GFR 0.82 MG/DL (0.70-1.30); GLOMERULAR FILTRATION RATE > 60.0 (>60); GLUCOSE, FASTING 89 MG/DL (60-100); IRON (FE) 109 UG/DL (65-175); POTASSIUM SERUM 4.2 MMOL/L (3.5-5.1); SODIUM LEVEL 142 MMOL/L (136-145); TOTAL IRON BINDING CAPACITY 330 UG/DL (250-425); TOTAL PROTEIN 7.8 G/DL (5.7-8.2)
[2023-09-01 17:32] LABS: FREE T4 1.04 NG/DL (0.89-1.76)
[2023-09-01 17:34] LABS: RHEUMATOID FACTOR QUANT < 3.5 IU/ML (<14)
[2023-09-01 18:02] LABS: HEPATITIS C VIRUS ABY INDEX 0.03 INDEX (<0.8)
[2023-09-01 18:03] LABS: HEPATITIS B CORE ANTIBODY IGM NEGATIVE (NEGATIVE)
[2023-09-01 18:21] LABS: THYROID STIMULATING HORMONE 1.318 uIU/ML (0.55-4.78)
== END ==
LOC: M LAB 15:37
PROVIDERS: ATTEND Registered Nurse
DX: Z20.5 Contact with and (suspected) exposure to viral hepatitis (principal)

== ENCOUNTER → 2024-03-16 | Outpatient (CLI) | payer OTHER ==
[~2024-03-16] MED LIST changes: +ONDA-282 PO; -ONDA4TAB6 PO
== END ==
LOC: M LAB 13:12
PROVIDERS: ATTEND Nurse Practitioner Family
DX: R79.89 Other specified abnormal findings of blood chemistry (principal)

== ENCOUNTER → 2024-11-15 | Outpatient (CLI) | payer OTHER ==
[2024-11-15 10:37] LABS: BASO % 0.5 % (0.0-1.0); EOS # 0.1 10^3/uL (0.0-0.5); EOS % 1.9 % (0.0-3.0); HEMATOCRIT 45.7 % (42.0-52.0); HEMOGLOBIN 14.9 g/dl (13.5-17.5); LYMPH # 2.1 10^3/uL (1.5-5.0); MEAN CORPUSCULAR HGB CONC 32.6 g/dl (32.0-36.5); MEAN CORPUSCULAR VOLUME 85.9 fl (80.0-96.0); MONO # 0.6 10^3/uL (0.0-0.8); MONO % 9.6 % (2.0-8.0); NEUTROPHILS # 3.4 10^3/uL (1.5-8.5); NEUTROPHILS % 53.7 % (36.0-66.0); PLATELET COUNT, AUTOMATED 293 10^3/uL (150-450); RED BLOOD COUNT 5.32 10^6/uL (4.30-6.10); WHITE BLOOD COUNT 6.3 10^3/uL (4.0-10.0)
[2024-11-15 10:40] LABS: HEMOGLOBIN A1c 5.2 % (4.0-6.0)
[2024-11-15 11:03] LABS: ALBUMIN 3.9 G/DL (3.2-5.2); ALKALINE PHOSPHATASE 56 U/L (40-129); ALT/SGPT 38 U/L (7.0-40); AST/SGOT 17 U/L (<34); BILIRUBIN,TOTAL 0.5 MG/DL (0.3-1.2); BLOOD UREA NITROGEN 10 MG/DL (9-23); CARBON DIOXIDE LEVEL 29 MMOL/L (20-31); CHLORIDE LEVEL 107 MMOL/L (98-107); GLOMERULAR FILTRATION RATE > 60.0 (>60); GLUCOSE, FASTING 87 MG/DL (60-100); IRON (FE) 70 UG/DL (65-175); PERCENT SATURATION 21.8 % (19.7-50.0); POTASSIUM SERUM 3.9 MMOL/L (3.5-5.1); SODIUM LEVEL 143 MMOL/L (136-145); TOTAL IRON BINDING CAPACITY 321 UG/DL (250-425); TOTAL PROTEIN 7.7 G/DL (5.7-8.2)
[2024-11-15 11:05] LABS: FERRITIN 83.5 NG/ML (10.5-307.3); TOTAL 25(OH) VITAMIN D 14.7 NG/ML (20.0-100.0)
[2024-11-15 11:06] LABS: VITAMIN B12 LEVEL 324 PG/ML (211-911)
[2024-11-16 13:38] LABS: INSULIN TOTAL2 14.7 uIU/mL (<=18.4)
== END ==
LOC: M LAB 08:59
PROVIDERS: ATTEND Registered Nurse
DX: R53.83 Other fatigue (principal)

== ENCOUNTER → 2024-11-15 | Outpatient (CLI) | payer OTHER ==
[2024-11-15 10:31] LABS: HEMATOCRIT 45.9 % (42.0-52.0); HEMOGLOBIN 15.1 g/dl (13.5-17.5); MEAN CORPUSCULAR HEMOGLOBIN 28.1 pg (27.0-33.0); MEAN CORPUSCULAR HGB CONC 32.9 g/dl (32.0-36.5); MEAN CORPUSCULAR VOLUME 85.3 fl (80.0-96.0); PLATELET COUNT, AUTOMATED 283 10^3/uL (150-450); RED BLOOD COUNT 5.38 10^6/uL (4.30-6.10); WHITE BLOOD COUNT 6.3 10^3/uL (4.0-10.0)
[2024-11-15 10:33] LABS: PSA SCREENING 1.18 NG/ML (< 4.00)
== END ==
LOC: M LAB 09:02
PROVIDERS: ATTEND Physician Assistant
DX: E29.1 Testicular hypofunction (principal)